=== PATIENT | male | born 1990 | race Caucasian/White ===

== ENCOUNTER 2016-12-28 16:42 | Inpatient (IN) | payer SELFPAY ==
[2016-12-28] MEDS ORDERED: NS 2,000 ML IV ONE (17:16)
[2016-12-28] MEDS ORDERED: VANCOMYCIN 1.5 GM in NS 500 ML IV ONE (17:25)
[2016-12-28 17:27] LABS: % IMMATURE GRANULYOCYTES 1.3 % (0.0-1.1); ABSOLUTE IMMATURE GRANULOCYTES 0.23 10^3/uL (0.00-0.10); ADD DIFF? NO; ADD MORPH? NO; ADD SCAN? YES; ATYPICAL LYMPHOCYTE FLAG 0 (0-99); FRAGMENT RBC FLAG 0 (0-99); HEMATOCRIT 44.6 % (40.0-51.0); HEMOGLOBIN 15.8 g/dL (13.7-17.5); LEFT SHIFT FLG 200 (0-99); LIPEMIA HEMOLYSIS FLAG 90 (0-99); MEAN CELL HEMOGLOBIN 30.7 pg (27.9-34.1); MEAN CELL HEMOGLOBIN CONCENTR. 35.4 g/dL (32.4-36.7); MEAN CELL VOLUME 86.8 fL (81.5-99.8); PLATELET CLUMPS FLAG 0 (0-99); PLATELET COUNT 162 10^3/uL (150-400); RED BLOOD CELL COUNT 5.14 10^6/uL (4.40-6.38); RED CELL DISTRIBUTION WIDTH 13.3 % (11.5-15.2)
[2016-12-28 17:36] LABS: APTT 34.3 SEC (23.0-38.0); INR 1.22 (0.83-1.16); PROTIME(PATIENT) 15.1 SEC (12.0-15.0)
--- NOTE | 2016-12-28 17:39 | EDPHY ---
H & P Stated Complaint: c/o bilat hand infections from cut x 24 hrs Time Seen by Provider: 12/28/16 16:58 HPI/ROS: This patient complains of wound infections in fever. 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 Over the past 24 hours he has developed subjective fevers in addition increasing tenderness to the hands and redness that is extended from the site of the wounds to entail the entire right arm into his chest and also extending up the left arm with streaking. He took 800 mg of ibuprofen at noon with resolution of fever but also had diaphoresis. Constitutional: + Subjective fevers and chills today prior to ibuprofen HEENT: Denies any complaints Pulmonary: Has a mild cough for the past 5 days that he attributes to smoking. This is occasionally productive of sputum. No pleuritic pain wheezing or shortness of breath Cardiovascular: He denies any chest pain or lightheadedness GI: No nausea vomiting. No diarrhea. : Darker urine than usual today. No dysuria. Neuro: No confusion, numbness or tingling. Musculoskeletal: He complains primarily of the pain at the right 2nd finger but has tenderness to all of his hand wounds both sides left thumb as well. However this all feels like skin pain him rather than bony pain. Denies any major trauma to the hands. But admits multiple minor wounds over successive days over the past week. Complete review of symptoms is otherwise negative. Source: Patient Exam Limitations: No limitations - Personal History Current Tetanus Diphtheria and Acellular Pertussis (TDAP): Unsure - Medical/Surgical History PMH: Psychiatric history. No previous skin infections. Other PMH: denies - Family History Significant Family History: No pertinent family hx - Social History Smoking Status: Current some day smoker Alcohol Use: Heavy (He reports 3 beers on average a day.) Drug Use: Marijuana (He reports regular marijuana use), Other (He denies any IV drug use) Additional Social History: Works as a emergency services professional often without his shirt on. - Physical Exam Exam: Notable for tachycardia of 135 on arrival, respiratory 22, O2 sat on room air 94 %. Other vitals normal General Appearance: Alert, no distress. Eyes: Pupils equal and round no pallor or injection. ENT, Mouth: Mucous membranes moist. Respiratory: There are no retractions, lungs are clear to auscultation. Cardiovascular: Regular rate and rhythm. Gastrointestinal: Abdomen is soft and nontender, no masses, bowel sounds normal. Neurological: GCS of 15 with no focal deficits Skin: Warm and dry, no rashes. Musculoskeletal: Neck is supple nontender. Extremities notable for hand wounds with infections-right hand 2nd finger with circumferential swelling and abrasion adjacent to the PIP joint with small amount of purulent drainage. No fluctuance. He does have some pain with passive motion in extension but no flexor tenderness or swelling. There are small dorsal wounds to the 3rd finger on the same hand into the thumb. There is confluent erythema extending from the skin wounds to the hand up the arm with lymphangitic streaking extends to the axilla and chest. Left hand thumb superficial skin wound with surrounding erythema that also extends up his arm with lymphangitic streaking. Psychiatric: Mood and affect are normal DIFFERENTIAL DIAGNOSIS: After history and physical exam differential diagnosis was considered for wound infection with lymphangitic streaking, cellulitis, sepsis, tendon sheath infection, osteomyelitis Constitutional: Initial Vital Signs Temperature (C) 36.6 C 12/28/16 17:05 Heart Rate 135 H 12/28/16 17:05 Respiratory Rate 22 H 12/28/16 17:05 Blood Pressure 121/94 H 12/28/16 17:05 O2 Sat (%) 94 12/28/16 17:05 O2 Delivery Mode Room Air Allergies/Adverse Reactions: No Known Allergies Allergy (Unverified 12/28/16 17:04) Home Medications: Medication Instructions Recorded Sertraline HCl 12/28/16 Wellbutrin 100mg (*) 12/28/16 Medical Decision Making - Diagnostics Imaging Results: 2nd finger x-rays: Normal except for soft tissue swelling at the PIP joint by my interpretation ED Course/Re-evaluation: IV normal saline bolus x2 L I spoke with Dr. Stephen Degroot, infectious disease regarding this patient he agrees with antibiotic plan of ceftriaxone vancomycin will consult on the patient when he is admitted. Ceftriaxone 1 g IV Vancomycin 1.5 g. IV I spoke with Dr. Raisa Otero, hospitalist who accepts patient for admission to step-down unit of the ICU at [facility]. I counseled the patient regarding his skin infection with sepsis requiring admission and answered his questions. I obtained a wound swab sent for culture using an 18 gauge needle but after baby shampoo and saline scrub to right hand wounds. Patient tolerated well. Discussion: Patient with hand wounds with infection causing lymphangitic streaking, cellulitis and severe sepsis by criteria with an elevated 1st lactate. His hand exam is notable for circumferential swelling to the right 2nd finger primarily at the PIP joint with some pain on passive motion in extension and flexion concerning for potential infectious tenosynovitis. Given this finding, I also consulted Dr. Shreyas Olmos-hand surgeon. Dr. olmos's in hand surgery so her lead some of the findings through his surgical nurse. Dr. olmos will consult Hospital regarding this patient. The patient is placed on NPO they had a small amount of water shortly after arrival here nothing since lunch at noon had a sandwich. His tachycardia is improving with saline IV-after 2 L his heart rate is 115. Repeat lactate after 2 L saline was spuriously low, apparently contaminated by some saline. This will be recheck to the hospital. 3rd L NS started. Patient is transferred to [facility] Step-Down Unit at approximately 2115. - Data Points Laboratory Results: Laboratory Results 12/28/16 17:20 12/28/16 17:20 12/28/16 12/28/16 12/28/16 17:20 17:20 17:20 WBC 18.12 10^3/uL H 10^3/uL (3.80-9.50) RBC 5.14 10^6/uL 10^6/uL (4.40-6.38) Hgb 15.8 g/dL g/dL (13.7-17.5) Hct 44.6 % % (40.0-51.0) MCV 86.8 fL fL (81.5-99.8) MCH 30.7 pg pg (27.9-34.1) MCHC 35.4 g/dL g/dL (32.4-36.7) RDW 13.3 % % (11.5-15.2) Plt Count 162 10^3/uL 10^3/uL (150-400) MPV 10.0 fL fL (8.7-11.7) Neut % (Auto) 88.2 % H % (39.3-74.2) Lymph % (Auto) 2.8 % L % (15.0-45.0) Nobles % (Auto) 7.0 % % (4.5-13.0) Eos % (Auto) 0.4 % L % (0.6-7.6) Baso % (Auto) 0.3 % % (0.3-1.7) Nucleat RBC Rel Count 0.0 % % (0.0-0.2) Absolute Neuts (auto) 16.00 10^3/uL H 10^3/uL (1.70-6.50) Absolute Lymphs (auto) 0.50 10^3/uL L 10^3/uL (1.00-3.00) Absolute Monos (auto) 1.27 10^3/uL H 10^3/uL (0.30-0.80) Absolute Eos (auto) 0.07 10^3/uL 10^3/uL (0.03-0.40) Absolute Basos (auto) 0.05 10^3/uL 10^3/uL (0.02-0.10) Absolute Nucleated RBC 0.00 10^3/uL 10^3/uL (0-0.01) Immature Gran % 1.3 % H % (0.0-1.1) Seg Neutrophils % 72 % % Band Neutrophils % 15 % % Lymphocytes % 3 % % Monocytes % 8 % % Metamyelocytes % 1 % % Immature Gran # 0.23 10^3/uL H 10^3/uL (0.00-0.10) Absolute Seg Neuts 13.0 K/MM3 H K/MM3 (1.8-7) Absolute Band Neuts 2.7 K/MM3 H K/MM3 (0-0.7) Absolute Lymphocytes 0.5 K/mm3 L K/mm3 (1.0-4.8) Absolute Monocytes 1.4 K/mm3 H K/mm3 (0-0.8) Absolute Metamyelocyte 0.2 K/mm3 H K/mm3 (0-0) RBC/WBC/PLT Morphology NORMAL (NORMAL) Platelet Estimate ADEQUATE (ADEQ) ESR 14 MM/HR MM/HR (0-15) PT INR APTT VBG Lactic Acid 3.8 mmol/L H mmol/L (0.7-2.1) Sodium 131 mEq/L L mEq/L (134-144) Potassium 4.3 mEq/L mEq/L (3.5-5.2) Chloride 100 mEq/L mEq/L (97-110) Carbon Dioxide 17 mEq/l L mEq/l (22-31) Anion Gap 14 mEq/L mEq/L (8-16) BUN 12 mg/dL mg/dL (7-23) Creatinine 0.9 mg/dL mg/dL (0.7-1.3) Estimated GFR > 60 Glucose 147 mg/dL H mg/dL (70-100) Calcium 9.0 mg/dL mg/dL (8.5-10.4) 12/28/16 17:20 WBC RBC Hgb Hct MCV MCH MCHC RDW Plt Count MPV Neut % (Auto) Lymph % (Auto) Nobles % (Auto) Eos % (Auto) Baso % (Auto) Nucleat RBC Rel Count Absolute Neuts (auto) Absolute Lymphs (auto) Absolute Monos (auto) Absolute Eos (auto) Absolute Basos (auto) Absolute Nucleated RBC Immature Gran % Seg Neutrophils % Band Neutrophils % Lymphocytes % Monocytes % Metamyelocytes % Immature Gran # Absolute Seg Neuts Absolute Band Neuts Absolute Lymphocytes Absolute Monocytes Absolute Metamyelocyte RBC/WBC/PLT Morphology Platelet Estimate ESR PT 15.1 SEC H SEC (12.0-15.0) INR 1.22 H (0.83-1.16) APTT 34.3 SEC SEC (23.0-38.0) VBG Lactic Acid Sodium Potassium Chloride Carbon Dioxide Anion Gap BUN Creatinine Estimated GFR Glucose Calcium Medications Given: Acetaminophen (Tylenol) 650 mg PO Q4HRS PRN PRN Reason: Pain, Mild/Fever, Can Take PO Stop: 06/26/17 20:22 Last Admin: 12/28/16 20:47 Dose: 650 mg Discontinued Medications Sodium Chloride (Ns) 2,000 mls @ 0 mls/hr IV ONCE ONE; Wide Open PRN Reason: Protocol Stop: 12/28/16 17:17 Last Admin: 12/28/16 17:49 Dose: 2,000 mls Ceftriaxone Sodium 1 gm/ (Sodium Chloride) 100 mls @ 200 mls/hr IV EDNOW ONE PRN Reason: Protocol Stop: 12/28/16 17:53 Last Admin: 12/28/16 17:43 Dose: 100 mls Vancomycin HCl 1.5 gm/ Sodium (Chloride) 500 mls @ 333.333 mls/hr IV EDNOW ONE PRN Reason: Protocol Stop: 12/28/16 18:54 Last Admin: 12/28/16 17:40 Dose: 500 mls Sodium Chloride (Ns) 1,000 mls @ 0 mls/hr IV ONCE ONE; Wide Open PRN Reason: Protocol Stop: 12/28/16 19:02 Last Admin: 12/28/16 19:13 Dose: 1,000 mls Departure - Departure Disposition: [facility] Inpatient Acute Clinical Impression: Lymphangitis, Severe sepsis Puncture wound of right hand with infection Qualifiers: Encounter type: initial encounter Qualified Code(s): S61.431A - Puncture wound without foreign body of right hand, initial encounter Condition: Serious
[2016-12-28 17:41] LABS: SCAN POSITIVE
[2016-12-28 17:44] LABS: ANION GAP 14 mEq/L (8-16); CARBON DIOXIDE 17 mEq/l (22-31); CHLORIDE 100 mEq/L (97-110); CREATININE 0.9 mg/dL (0.7-1.3); GLOMERULAR FILTRATION RATE > 60; GLUCOSE 147 mg/dL (70-100); PLATELET ESTIMATE ADEQUATE (ADEQ); POTASSIUM 4.3 mEq/L (3.5-5.2); SODIUM 131 mEq/L (134-144)
[2016-12-28 18:04] LABS: SEDIMENTATION RATE 14 MM/HR (0-15)
[2016-12-28] MEDS ORDERED: NS 1,000 ML IV ONE (19:01)
[2016-12-28 19:08] LABS: LEUKOCYTE ESTERASE,URINE NEGATIVE (NEGATIVE); NITRITE,URINE NEGATIVE (NEGATIVE)
[2016-12-28 19:12] LABS: COLOR DARK YELLOW
[2016-12-28 19:16] LABS: BACTERIA TRACE /hpf (NONE SEEN); MUCUS 2+ /lpf (NONE-1+); WBC,URINE OCCASIONAL /hpf (0-3)
[2016-12-28] MEDS ORDERED: ONDANSETRON DISINTEGRATING 4 MG TAB PO PRN ×2 (20:23→21:00)
[2016-12-28] MEDS ORDERED: ONDANSETRON 4 MG/2 ML VIAL IVP PRN (20:23)
[2016-12-28] MEDS: ACETAMINOPHEN 325 MG TAB PO PRN (20:47)
[2016-12-28] MEDS ORDERED: NS 1,000 ML IV SCH (21:00)
[2016-12-28] MEDS ORDERED: ACETAMINOPHEN 325 MG TAB PO PRN (21:00)
[2016-12-28] MEDS ORDERED: LIDOCAINE 2% 100 MG/5 ML SYR ONE (21:01)
[2016-12-28] MEDS ORDERED: fentaNYL 250 MCG/5 ML INJ ONE (21:01)
[2016-12-28] MEDS ORDERED: PROPOFOL 200 MG/20 ML VIAL ONE (21:01)
[2016-12-28] MEDS ORDERED: MIDAZOLAM 2 MG/2 ML VIAL ONE (21:04)
--- NOTE | 2016-12-28 21:09 | PDANEPAE ---
ANE Past Medical History - Pulmonary History Hx Oxygen in Use at Home: No ANE Review of Systems Review of Systems: ANE Patient History - Allergies Allergies/Adverse Reactions: No Known Allergies Allergy (Unverified 12/28/16 17:04) - Home Medications Home Medications: Seroquel 100 mg (*) 12/28/16 [Last Taken Unknown] Wellbutrin 100mg (*) 12/28/16 [Last Taken Unknown] - Smoking Hx Smoking Status: Current some day smoker - Alcohol Use Alcohol Use: Heavy (He reports 3 beers on average a day.) ANE Labs/Vital Signs - Labs Result Diagrams: 12/28/16 17:20 12/28/16 17:20 - Vital Signs Blood Pressure: 108/64 Heart Rate: 116 Respiratory Rate: 25 O2 Sat (%): 100 Height: 177.8 cm Weight: 76.6 kg ANE Physical Exam - Airway Neck exam: FROM Mallampati Score: Class 2 Mouth exam: normal dental/mouth exam - Pulmonary Pulmonary: no respiratory distress - Cardiovascular Cardiovascular: regular rate and rhythym - ASA Status ASA Status: II, E ANE Anesthesia Plan Anesthesia Plan: GA w LMA
--- NOTE | 2016-12-28 21:19 | GHP ---
[f rep st] HISTORY AND PHYSICAL DATE OF ADMISSION: 12/28/2016 CHIEF COMPLAINT: Severe sepsis, right hand cellulitis, possible abscess. HISTORY OF PRESENT ILLNESS: A 26-year-old male with history of depression, presenting with right hand swelling, pain and fever. He works in [employer] and has multiple cuts over his hands. He said he has picked at some of the scabs on the right. There was a little bit of pus that came out. He was trying to disinfect it. He had fevers and sweats last night. He noted swelling yesterday that rapidly progressed today, especially his right index finger. He began having red streaking up the right arm to his axilla. Reports the pain as being achy and throbbing, especially if he hits it on something. He took 800 mg of ibuprofen at noon with a fever and helped resolve that. REVIEW OF SYSTEMS: I completed a 10-point review of systems, negative except as noted in HPI. PAST MEDICAL HISTORY: Depression. PAST SURGICAL HISTORY: None. FAMILY HISTORY: Noncontributory. SOCIAL HISTORY: He is living at [place] [id number] or in [place]. He smokes a pack of cigarettes a day. Smokes daily marijuana. No other drugs. Three to 5 beers a day. MEDICATIONS: Zoloft, Wellbutrin. ALLERGIES: No known drug allergies. PHYSICAL EXAM: VITAL SIGNS: Temperature 39.1, blood pressure 108/64, heart rate 116, respirations 20, 100% on room air. GENERAL: Sitting up in bed, mildly uncomfortable. HEENT: PERRLA. Dry mucous membranes. CV: Tachy but regular. No murmurs, gallops, rubs. LUNGS: Clear to auscultation bilaterally. ABDOMEN: Soft, nontender, nondistended. Positive bowel sounds. : No suprapubic tenderness. MUSCULOSKELETAL: Right hand erythematous with significant swelling, +2 pulse. Significant swelling in the index finger. There is a couple scabbed over lesions. No overt purulence now. He has red streaking up to the axilla. Left hand with mild swelling over the thumb and erythema there. Tenderness to touch. Good cap refill. NEURO: 2 through 12 intact. PSYCH: Alert and oriented x3. LABS: WBC is 18, hemoglobin 15, hematocrit 44, platelets 162. INR 1.2, PT 15. Lactate 3.8, 0.5 after fluids. Sodium 131, potassium 4.3, chloride 100, carbon dioxide 29, creatinine 0.9, glucose 147, calcium 9. UA trace bacteria. Blood cultures are pending. IMAGING: Hand x-ray 12/28/2016. Diffuse hand edema and asymptomatic involving the right index finger. ASSESSMENT AND PLAN: 1. Severe sepsis: Secondary to right hand cellulitis versus abscess, also left hand involvement. Infectious Disease was contacted from [facility] and he recommended ceftriaxone, vancomycin. Dr. Olmos with hand surgery will take patient for I and D this evening. Blood cultures are pending. Repeat CBC in the morning. 2. Lactic acidosis: due to acute illness.Resolved quickly with IV fluids. 3. Tachycardia: due to fever, infection and pain. Monitor on telemetry. Continue IV fluids. 4. Leukocytosis. Again, secondary to abscess. Urine cultures pending. Continue broad antibiotics. Infectious Disease to consult in the morning. 5. Tobacco abuse. Nicotine patch. 6. THC use. Counseled on cessation. 7. Alcohol use. He drinks 3-5 beers a day. Denies any alcohol withdrawal. Will monitor. DIET: N.p.o. DEEP VENOUS THROMBOSIS PROPHYLAXIS: SCDs. DISPOSITION: Patient warrants inpatient admission given acute sepsis warranting surgical intervention and IV antibiotics. /[id number]/MODL MTDD
[2016-12-28] MEDS ORDERED: BACITRACIN 50,000 UNITS/10 ML SYR IRR ONE ×2 (21:42→22:44)
[2016-12-28] MEDS ORDERED: POLYMYXIN B SULFATE 500,000 UNIT/10 ML SYR IRR ONE ×2 (21:42→22:44)
[2016-12-28] MEDS: NICOTINE 21 MG/24 HR PATCH TD SCH (21:45)
[2016-12-28] MEDS ORDERED: ceFAZolin 1 GM VIAL ONE ×2 (22:46)
[2016-12-29] MEDS ORDERED: NALOXONE HCL 0.4 MG/ML INJ IVP PRN (00:52)
[2016-12-29] MEDS ORDERED: fentaNYL 100 MCG/2 ML INJ IVP PRN (00:52)
[2016-12-29] MEDS ORDERED: ALBUTEROL 3 ML DEYVIAL IH PRN (00:52)
[2016-12-29] MEDS ORDERED: ONDANSETRON 4 MG/2 ML VIAL IVP PRN (00:52)
[2016-12-29] MEDS ORDERED: HYDROmorphONE/DILAUDID 1 MG/ML INJ IVP PRN (00:52)
[2016-12-29] MEDS ORDERED: ACETAMINOPHEN 500 MG TAB PO PRN (00:52)
--- NOTE | 2016-12-29 00:54 | POSTANESTH ---
Post Anesthetic Evaluation Cardiovascular Status: Similar to Pre-Op Cond Respiratory Status: Similar to Pre-op Cond. Level of Consciousness/Mental Status: Alert and Oriented Pain Control: Adequate, Prn Tx Ordered Nausea/Vomiting Control: Adequate, Prn Tx Ordered Complications Possibly Related to Anesthesia: None Noted
[2016-12-29] MEDS: ACETAMINOPHEN 325 MG TAB PO PRN (01:12)
[2016-12-29] MEDS: HYDROmorphONE/DILAUDID 1 MG/ML INJ IVP PRN ×4 (01:33→16:08)
[2016-12-29] MEDS: oxyCODONE IR 5 MG TAB PO PRN ×5 (02:05→17:42)
[2016-12-29] MEDS: VANCOMYCIN 1.25 GM in D5W 250 ML IV SCH ×2 (05:24→17:09)
--- NOTE | 2016-12-29 05:30 | GCON ---
[f rep st] CONSULTATION Patient Name: KAREEN GARNETT N-Number: [id number] Date of : 1990 Patient Status: Inpatient Attending Doctor: Amanda Otero MD Consulting Doctor: Shreyas Olmos MD Date of service: 12/28/16 CPT codes: CPT code 17764 ER visit requiring admission or initial inpatient visit, level three Modifier 57 decision for surgery CHIEF COMPLAINT: Right index, long, ring, and small finger pain, right volar and radial wrist pain. Left thumb and ring finger pain HISTORY OF PRESENT ILLNESS: This is a very pleasant 26 year old male with a significant history for IVDU with the insidious onset of right index, long, ring, and small finger pain, right volar and radial wrist pain, left thumb pain, and left ring finger pain after sustaining multiple cuts in these areas. He has also noticed overlying swelling and erythema in all of the aforementioned areas. PROBLEM LIST: Right dorsal hand and index finger infection, right long finger dorsal PIPJ infection, right ring finger dorsal metacarpal infection, right small finger paronychia, right volar and radial wrist abscess // Left dorsal thumb metacarpal infection, left radial thumb IPJ infection, left thumb felon, left ring finger felon PAST MEDICAL HISTORY: None SURGERIES: None SOCIAL HISTORY: IVDU, tobacco, marijuana FAMILY HISTORY: CURRENT MEDICATIONS: None ALLERGIES: NKDA REVIEW OF SYSTEMS Constitutional: No unexpected weight loss, weight gain, fevers, chills, or fatigue. Eyes: No blurred or double vision, no eye pain, redness or swelling. ENT: No headaches, difficulty swallowing, nose bleeds, tinnitus, or earaches. Cardiovascular: No chest pain, palpitations, fainting or murmurs. Respiratory: No shortness of breath, wheezing, cough, of difficulty breathing. GI: No reflux, no nausea or vomiting, no constipation, diarrhea, or bloody stools. Genitourinary: No urinary frequency or urgency, no pain with urination. Skin: No skin changes, rashes, itching, or redness. Neurologic: No unsteadiness of gait, no dizziness, tremors, or seizures. Psychiatric: No nervousness, anxiety, depression, or hallucinations. Hematologic: No increased bleeding or easy bruising. Endocrine: No excessive thirst or urination and no heat or cold intolerances. Allergic: No reactions to food or environment. Musculoskeletal: See history of present illness. PHYSICAL EXAM VITAL SIGNS: General: No apparent distress. Orientation: Alert and oriented times three Mood and affect: Calm, appropriate. Gait and station: Normal gait and station. Skin: Erythema along right hand and forearm as well as left thumb and left ring finger Lymph: Non tender neck, axillary and inguinal nodes. Chest: Equal expansion, no pain with deep breaths, speaks in coherent sentences. Cardiovascular: Regular pulse. Abdomen: Soft, non-tender, no masses, no palpable hernias. Bilateral wrist examination Inspection/palpation: Right: Right volar and radial wrist laceration (3mm) with surrounding erythema and enlargement c/w abscess Left: Normal resting posture. Wrist ROM Wrist Flexion: 90 / 90 / 90 Extension: 90 / 90 / 90 Forearm Supination: 0-80 / 0-80 / 0-80 Pronation: 0-80 / 0-80 / 0-80 Wrist/hand strength (R / L / Normal) ECRL/ECRB (C6): FCU/ECU: EDC: EPL (PIN): FPL (AIN): FDS (C8): FDP (C8): FDP-I (C8 / AIN): DI (C8-T1): PI (C8-T1): / Wrist/hand sensory MABC : + / + / + LABC: + / + / + Median: + / + / + Palmar cutaneous: + / + / + Radial: + / + / + SBRN: + / + / + Ulnar: + / + / + DSBUN: + / + / + Bilateral finger examination Inspection/palpation: Right: Right dorsal index metacarpal, right index MCPJ, and right index PIPJ pain and erythema, right dorsal long finger PIPJ pain and erythema, right ring finger dorsal metacarpal pain and swelling, right small finger paronychia Left: Left ring finger volar distal phalanx laceration (3mm) with associated felon Finger ROM Index MCP: 0-50 / 0-80 / 0-80 PIP: 0-75 / 0-105 / 0-105 DIP: 0-45 / 0-75 / 0-75 Long MCP: 0-80 / 0-80 / 0-80 PIP: 0-85 / 0-105 / 0-105 DIP: 0-75 / 0-75 / 0-75 Ring MCP: 0-60 / 0-80 / 0-80 PIP: 0-85 / 0-105 / 0-105 DIP: 0-55 / 0-60 / 0-75 Small MCP: 0-80 / 0-80 / 0-80 PIP: 0-105 / 0-105 / 0-105 DIP: 0-45 / 0-75 / 0-75 Finger motor and sensory Index FDS: + / + / + FDP: + / + / + EDC: + / + / + RDN: + / + / + UDN: + / + / + Long FDS: + / + / + FDP: + / + / + EDC: + / + / + RDN: + / + / + UDN: + / + / + Ring FDS: + / + / + FDP: + / + / + EDC: + / + / + RDN: + / + / + UDN: + / + / + Small FDS: + / + / + FDP: + / + / + EDC: + / + / + RDN: + / + / + UDN: + / + / + Bilateral thumb examination Inspection/palpation: Right: Soft, no tenderness to palpation. Left: Left dorsal thumb metacarpal laceration (3mm) with surrounding erythema, left radial-sided IPJ laceration (2mm) with surrounding erythema, left ulnar sided thumb distal phalanx laceration (2mm) with associated felon Thumb ROM CMC Radial abduction: 80 / 80 / 80 Palmar abduction: 80 / 80 / 80 MCP: 0-60 / 0-40 / 0-60 IP: 0-50 / 0-30 / 0-50 Thumb motors FPL: EPL: Thumb sensory RDN: + / + / + UDN: + / + / + Medical decision making Diagnoses New diagnoses: Right dorsal hand and index finger infection, right long finger dorsal PIPJ infection, right ring finger dorsal metacarpal infection, right small finger paronychia, right volar and radial wrist abscess // Left dorsal thumb metacarpal infection, left radial thumb IPJ infection, left thumb felon, left ring finger felon Work-up planned: yes: see assessment and plan Assessment and plan This is a 26 year old male with a right dorsal hand and index finger infection, a right long finger dorsal PIPJ infection, a right ring finger dorsal metacarpal infection, a right small finger paronychia, a right volar and radial wrist abscess, left dorsal thumb metacarpal infection, a left radial thumb IPJ infection, a left thumb felon, and a left ring finger felon -As such I have discussed with the patient the risks, benefits, alternatives, and complications associated with both non-operative (specifically, observation , antibiotics) and operative (specifically, bilateral hand and wrist irrigation and debridement) forms of treatment -The patient fully understands the risks, benefits, alternatives, and complications of both forms of treatment and the patient wishes to proceed with operative intervention as outlined above -He has signed the informed consent form for surgery and surgery will be performed as soon as the OR is available Time I have spent 80 minutes of [id number] time with the patient during this visit. Over fifty percent of this time was spent counseling the patient on the risks, benefits, alternatives, and complications of both non-operative and operative forms of treatment as outlined above. /[id number]/MODL MTDD
[2016-12-29 05:32] LABS: HEMATOCRIT 38.2 % (40.0-51.0); HEMOGLOBIN 13.5 g/dL (13.7-17.5); MEAN CELL HEMOGLOBIN 31.9 pg (27.9-34.1); MEAN CELL HEMOGLOBIN CONCENTR. 35.3 g/dL (32.4-36.7); MEAN CELL VOLUME 90.3 fL (81.5-99.8); RED BLOOD CELL COUNT 4.23 10^6/uL (4.40-6.38); RED CELL DISTRIBUTION WIDTH 13.8 % (11.5-15.2)
[2016-12-29 05:45] LABS: ANION GAP 8 mEq/L (8-16); CALCIUM 8.1 mg/dL (8.5-10.4); CARBON DIOXIDE 19 mEq/l (22-31); CHLORIDE 107 mEq/L (97-110); CREATININE 0.8 mg/dL (0.7-1.3); GLOMERULAR FILTRATION RATE > 60; GLUCOSE 103 mg/dL (70-100); SODIUM 134 mEq/L (134-144)
[2016-12-29] MEDS: diphenhydrAMINE 25 MG CAP PO PRN ×2 (06:29→17:42)
[2016-12-29 07:30] LABS: ALBUMIN 2.6 g/dL (3.5-5.0); BILIRUBIN,TOTAL 0.7 mg/dL (0.1-1.4); BILIRUBIN-CONJUGATED 0.6 mg/dL (0.0-0.5); BILIRUBIN-UNCONJUGATED 0.1 mg/dL (0.0-1.1); MAGNESIUM 1.9 mg/dL (1.6-2.3); TOTAL PROTEIN 4.7 g/dL (6.3-8.2)
--- NOTE | 2016-12-29 08:25 | PDMN ---
Medical Necessity Medical necessity: Patient meets INPT criteria per [facility] M-160 Sepsis and Other Febrile Illness - (severe sepsis d/t bilat hand cellulitis vs abscess: leukocytosis/WBC > 18,000; lactic acidosis/lactic acid 3.8; fever to 102, tachycardia p initial fluid resuscitation; anticipated LOS > 2 midnights for surgical I&D, ongoing IV antibiotics, fluids, antiemetics, pain control.)
[2016-12-29] MEDS: NICOTINE 21 MG/24 HR PATCH TD SCH (08:30)
[2016-12-29] MEDS ORDERED: ENOXAPARIN 40 MG/0.4 ML SYR SC SCH (09:00)
[2016-12-29 09:01] LABS: PHENCYCLIDINE URINE BCH < 6 ng/ml (NEGATIVE); PHENCYCLIDINE URINE BCH NEGATIVE (NEGATIVE)
--- NOTE | 2016-12-29 09:01 | GOP ---
[f rep st] OPERATIVE REPORT PATIENT: KAREEN GARNETT DATE OF SERVICE: 12/28/16 PATIENT DATE OF : 1990 SURGEON: Shreyas Olmos M.D. [employer] REPA[employer]ER: None ANESTHESIA: General PRE-OPERATIVE DIAGNOSES: RIGHT HAND: Right index finger extensor tendon sheath infection (ICD-10 code M65.041 right index extensor tendon sheath infection) Right dorsal index metacarpal abscess (ICD-10 code L02.519 cutaneous abscess of hand) Right dorsal index metacarpophalangeal joint abscess (ICD-10 code L02.519 cutaneous abscess of hand) Right dorsal index proximal interphalangeal joint abscess (ICD-10 code L02.519 cutaneous abscess of hand) Right second web space collar button abscess (ICD-10 code L02.519 cutaneous abscess of hand) Right dorsal long finger proximal interphalangeal joint abscess (ICD-10 code L02.519 cutaneous abscess of hand) Right dorsal ring finger metacarpal abscess (ICD-10 code L02.519 cutaneous abscess of hand) Right dorsal ring finger extensor tendon sheath infection (ICD-10 code M65.041 right ring extensor tendon sheath infection) Right small finger paronychia (ICD-10 code L03.90 paronychia) Right volar and radial wrist abscess (ICD-10 code L02.519 cutaneous abscess of hand) LEFT HAND: Left dorsal thumb metacarpal abscess (ICD-10 code L02.519 cutaneous abscess of hand) Left thumb extensor tendon sheath infection (ICD-10 code M65.041 left thumb extensor tendon sheath infection) Left thumb radial-sided interphalangeal joint abscess (ICD-10 code L02.519 cutaneous abscess of hand) Left thumb felon (ICD-10 code L02.519 cutaneous abscess of hand) Left ring finger felon (ICD-10 code L02.519 -- cutaneous abscess of hand) POST-OPERATIVE DIAGNOSES: RIGHT HAND: Right index finger extensor tendon sheath infection (ICD-10 code M65.041 right index extensor tendon sheath infection) Right dorsal index metacarpal abscess (ICD-10 code L02.519 cutaneous abscess of hand) Right dorsal index metacarpophalangeal joint abscess (ICD-10 code L02.519 cutaneous abscess of hand) Right dorsal index proximal interphalangeal joint abscess (ICD-10 code L02.519 cutaneous abscess of hand) Right second web space collar button abscess (ICD-10 code L02.519 cutaneous abscess of hand) Right dorsal long finger proximal interphalangeal joint abscess (ICD-10 code L02.519 cutaneous abscess of hand) Right dorsal ring finger metacarpal abscess (ICD-10 code L02.519 cutaneous abscess of hand) Right dorsal ring finger extensor tendon sheath infection (ICD-10 code M65.041 right ring extensor tendon sheath infection) Right small finger paronychia (ICD-10 code L03.90 paronychia) Right volar and radial wrist abscess (ICD-10 code L02.519 cutaneous abscess of hand) LEFT HAND: Left dorsal thumb metacarpal abscess (ICD-10 code L02.519 cutaneous abscess of hand) Left thumb extensor tendon sheath infection (ICD-10 code M65.041 left thumb extensor tendon sheath infection) Left thumb radial-sided interphalangeal joint abscess (ICD-10 code L02.519 cutaneous abscess of hand) Left thumb felon (ICD-10 code L02.519 cutaneous abscess of hand) Left ring finger felon (ICD-10 code L02.519 -- cutaneous abscess of hand) OPERATIVE PROCEDURES: RIGHT HAND: CPT code 88539 Right index finger drainage of tendon sheath (right index extensor) CPT code 79464 Right dorsal index metacarpal abscess incision and drainage CPT code 37291 Right dorsal index MCP joint abscess incision and drainage CPT code 48223 Right dorsal index PIP joint abscess incision and drainage CPT code 84090 Right second web space collar button abscess incision and drainage CPT code 27458 Right long finger dorsal PIPJ abscess incision and drainage CPT code 17644 Right ring finger dorsal metacarpal abscess incision and drainage CPT code 49256 Right ring finger drainage of tendon sheath (right ring extensor ) CPT code 10567 Right small finger paronychia incision and drainage CPT code 39915 Right volar and radial wrist abscess incision and drainage CPT code 21217 Debridement of bone, first 20 square cm or less LEFT HAND: CPT code 35827 Left thumb dorsal metacarpal abscess incision and drainage CPT code 93242 Left thumb drainage of tendon sheath (left thumb extensors) CPT code 56933 Left thumb radial-sided IP joint abscess incision and drainage CPT code 86584 Left thumb felon incision and drainage CPT code 21657 Left ring finger felon incision and drainage CPT code 51721 Debridement of bone, first 20 square cm or less EBL: RIGHT HAND: 3cc LEFT HAND: 1cc COMPLICATIONS: None TOURNIQUET TIME: RIGHT HAND: 81 minutes at 250mm Hg LEFT HAND: 43 minutes at 250 mm Hg IMPLANTS: RIGHT HAND: inch nu-gauze packing strips in right index dorsal metacarpal abscess, right index dorsal MCP joint abscess, right index dorsal PIP joint abscess, and right second web space collar button abscess LEFT HAND: inch nu-gauze packing strips in left dorsal thumb metacarpal abscess, left thumb radial-sided IP joint abscess, and left thumb felon BRIEF CLINICAL NOTE: This is a very pleasant 26 year old male with a significant history for multiple abscess affecting his bilateral hand. As such , I discussed the risks, benefits, alternatives, and complications associated with both non-operative (specifically, observation, antibiotics) and operative ( specifically, bilateral hand irrigation and debridement) forms of treatment. The patient fully understood the risks, benefits, alternatives, and complications associated with both forms of treatment and wished to proceed with operative intervention as outlined above. The patient signed the informed consent form for surgery. OPERATIVE NOTE: On the day of surgery, all of the patients questions were answered. The patient was then transferred from the pre-operative area into the operating room and a formal, Time-Out procedure was performed. The patient was identified by name, medical record number, social security number, and date of . In addition, the patients right and left hands were both identified as correct portions of the patients body for surgery. The right and left brachii were then padded with webril and 18-inch tourniquets were applied. The bilateral upper extremities were then prepped and draped in the normal sterile fashion. RIGHT HAND A sterile marking pen was then utilized to marquita out curvilinear incisions overlying the right dorsal index metacarpal, the right dorsal index MCP joint, the right dorsal index PIP joint, the right volar second web space, the right dorsal long finger PIP joint, the right dorsal ring finger metacarpal, the radial and ulnar borders of the right small finger eponychium, and the right volar and radial wrist. The right upper extremity was then elevated for several minutes and the tourniquet was inflated to 250mm Hg. Right dorsal index metacarpal incision A number 15 blade was used to incise the skin overlying the right dorsal index finger metacarpal. Meticulous hemostasis was obtained in the subcutaneous plane. Superficial sensory nerve branches were identified and protected. The EDC-index and the EIP tendons were both identified and protected. The abscess cavity was incised and drained. The extensor tendon sheath was also incised and drained. Swab and tissue cultures were obtained. The entire wound was sharply surgically debrided and copiously irrigated with sterile normal saline mixed with bacitracin and polymixin. Right dorsal index MCP joint incision A number 15 blade was used to incise the skin overlying the right dorsal index finger MCP joint. Meticulous hemostasis was obtained in the subcutaneous plane. Superficial sensory nerve branches were identified and protected. The EDC-index and the EIP tendons were both identified and protected. The abscess cavity was incised and drained. The extensor tendon sheath was also incised and drained. Swab and tissue cultures were obtained. The entire wound was sharply surgically debrided and copiously irrigated with sterile normal saline mixed with bacitracin and polymixin. Right dorsal index PIP joint incision A number 15 blade was used to incise the skin overlying the right dorsal index finger PIP joint. Meticulous hemostasis was obtained in the subcutaneous plane. Superficial sensory nerve branches were identified and protected. The EDC-index was identified and protected. The abscess cavity was incised and drained. The extensor tendon sheath was also incised and drained. Swab and tissue cultures were obtained. The entire wound was sharply surgically debrided and copiously irrigated with sterile normal saline mixed with bacitracin and polymixin. Right volar second web space incision A number 15 blade was used to incise the skin overlying the right volar second web space. Meticulous hemostasis was obtained in the subcutaneous plane. The ulnar neurovascular bundle to the index finger and the radial neurovascular bundle to the long finger were both identified and protected. The collar button abscess cavity was incised and drained. Swab and tissue cultures were obtained. The entire wound was sharply surgically debrided and copiously irrigated with sterile normal saline mixed with bacitracin and polymixin Right dorsal long finger PIP joint incision A number 15 blade was used to incise the skin overlying the right dorsal long finger PIP joint. Meticulous hemostasis was obtained in the subcutaneous plane. Superficial sensory nerve branches were identified and protected. The EDC-long was identified and protected. The abscess cavity was incised and drained. The extensor tendon sheath was also incised and drained. Swab and tissue cultures were obtained. The entire wound was sharply surgically debrided and copiously irrigated with sterile normal saline mixed with bacitracin and polymixin. Right dorsal ring metacarpal incision A number 15 blade was used to incise the skin overlying the right dorsal ring finger metacarpal. Meticulous hemostasis was obtained in the subcutaneous plane. Superficial sensory nerve branches were identified and protected. The EDC-ring tendon was identified and protected. The abscess cavity was incised and drained. The extensor tendon sheath was also incised and drained. Swab and tissue cultures were obtained. The entire wound was sharply surgically debrided and copiously irrigated with sterile normal saline mixed with bacitracin and polymixin. Right small finger eponychium incisions A number 15 blade was then utilized to incise the skin along the radial and ulnar borders of the eponychiam and a proximally based flap of skin was elevated and tied back in place utilizing 4-0 nylon sutures. The eponychial fold demonstrated significant purulent drainage which was cultured and sent to the laboratory for microbiologic examination. The entire wound was then sharply surgically debrided and copiously irrigated with sterile normal saline mixed with bacitracin and polymixin. Right volar and radial wrist incision A number 15 blade was used to incise the skin overlying the right volar and radial wrist. Meticulous hemostasis was obtained in the subcutaneous plane. Superficial sensory nerve branches were identified and protected. The abscess cavity was incised and drained. Swab and tissue cultures were obtained. The entire wound was sharply surgically debrided and copiously irrigated with sterile normal saline mixed with bacitracin and polymixin. One-quarter inch nu-gauze packing strips were then inserted into the following wounds: -Right dorsal index metacarpal -Right dorsal index MCP joint -Right dorsal index PIP joint -Right volar second web space The skin was then re-approximated for all incisions with 4-0 nylon sutures. The skin was then cleaned and dried. Betadine soaked gauze as applied to all of the incisions followed by a dry sterile dressing and a compressive Coban wrap. The tourniquet was then deflated and all fingers and the thumb demonstrated brisk capillary refill. Attention was then turned to the left upper extremity: LEFT HAND A sterile marking pen was then utilized to marquita out curvilinear incisions overlying the left dorsal thumb metacarpal, the left thumb radial IP joint, the ulnar border of the left thumb distal phalanx, and the volar aspect of the left ring finger distal phalanx. The left upper extremity was then elevated for several minutes and the tourniquet was inflated to 250mm Hg. Left thumb dorsal metacarpal incision A number 15 blade was used to incise the skin overlying the left thumb dorsal metacarpal. Meticulous hemostasis was obtained in the subcutaneous plane. Superficial sensory nerve branches were identified and protected. The EPL and EPB tendons were both identified and protected. The abscess cavity was incised and drained. The extensor tendon sheath was also incised and drained. Swab and tissue cultures were obtained. The entire wound was sharply surgically debrided and copiously irrigated with sterile normal saline mixed with bacitracin and polymixin. Left thumb radial-sided IP joint incision A number 15 blade was used to incise the skin overlying the radial aspect of the left thumb IP joint. Meticulous hemostasis was obtained in the subcutaneous plane. The radial neurovascular bundle was identified and protected. The abscess cavity was incised and drained. The entire wound was sharply surgically debrided and copiously irrigated with sterile normal saline mixed with bacitracin and polymixin. Left thumb ulnar-sided distal phalanx incision A number 15 blade was used to incise the skin overlying the ulnar aspect of the left thumb distal phalanx. Meticulous hemostasis was obtained in the subcutaneous plane. The pulp space septae were sharply incised. The abscess cavity was incised and drained. The entire wound was sharply surgically debrided and copiously irrigated with sterile normal saline mixed with bacitracin and polymixin. Left ring finger volar distal phalanx incision A number 15 blade was used to incise the skin overlying the volar aspect of the left ring finger distal phalanx. Meticulous hemostasis was obtained in the subcutaneous plane. The pulp space septae were sharply incised. The abscess cavity was incised and drained. The entire wound was sharply surgically debrided and copiously irrigated with sterile normal saline mixed with bacitracin and polymixin. One-quarter inch nu-gauze packing strips were then inserted into the following wounds: -Left dorsal thumb metacarpal -Left thumb radial-sided IP joint -Left thumb felon The skin was then re-approximated for all incisions with 4-0 nylon sutures. The skin was then cleaned and dried. Betadine soaked gauze as applied to all of the incisions followed by a dry sterile dressing and a compressive Coban wrap. The tourniquet was then deflated and all fingers and the thumb demonstrated brisk capillary refill. The patient was then reversed from anesthesia and transferred from the operating room table onto the post-operative gurney and transferred from the operating room to the post-anesthesia care unit in stable condition. POST-OPERATIVE PLAN: The patient will remain in the current dressings for the next two days. The patient will be admitted to the hospitalist team and the infectious disease team will be consulted for recommendations on long-term antibiotics. /[id number]/MODL MTDD
[2016-12-29 09:12] LABS: TETRAHYDROCANNABINOL URINE 320 ng/mL (NEGATIVE)
--- NOTE | 2016-12-29 11:03 | HOSPPROG ---
Hospitalist Progress Note Assessment/Plan: Sepsis secondary to b/l hand cellulitis / abscess, s/p I&D by orthopedic surgery last night, POD #1. wbc's trending down. Continue Vancomycin, await culture data. Pt has not had tetanus vaccine in at least 10 yrs, will give Tdap. Polysubstance abuse - UDS positive for amphetamine, undetectably high opiates, bzds, and THC. Denies IVDA. HIV screen pending. May need opiates for pain control, though utilize non-opiate therapies as able and minimize home Rx's for his safety. Depression / Anxiety - resume wellbutrin and zoloft Full code Dispo - cont inpt Subjective: Pt reports poor pain control, Tmax 39.1 last night. reports increased redness tracking up right arm into armpit. +N/V, but tolerating po. 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 He uses Nichol and "ambiguous" drugs. Denies IVDA. Objective: Vital Signs Temp Pulse Resp BP Pulse Ox 37.3 C 91 17 144/102 H 92 12/29/16 08:00 12/29/16 08:00 12/29/16 08:00 12/29/16 08:00 12/29/16 08:00 Microbiology 12/28/16 22:15 Gram Stain - Final Hand - Tissue 12/28/16 22:15 Gram Stain - Final Hand - Eswab 12/28/16 22:15 Gram Stain - Final Hand - Eswab 12/28/16 22:15 Mycobacterial Smear (TIFFANIE) - Final Hand - Eswab Mycobacterial Culture - Final 12/28/16 22:15 Mycobacterial Smear (TIFFANIE) - Final Hand - Eswab Mycobacterial Culture - Final Laboratory Results 12/29/16 05:18 12/29/16 05:18 12/28/16 12/29/16 12/30/16 05:59 05:59 05:59 Intake Total 3750 1750 Output Total 300 800 Balance 3450 950 PT 15.1 SEC (12.0-15.0) H 12/28/16 17:20 INR 1.22 (0.83-1.16) H 12/28/16 17:20 - Physical Exam Constitutional: no apparent distress Eyes: PERRL Ears, Nose, Mouth, Throat: moist mucous membranes Cardiovascular: regular rate and rhythym, no murmur, rub, or gallop Respiratory: no respiratory distress, clear to auscultation Gastrointestinal: normoactive bowel sounds, soft, non-tender abdomen Skin: warm, other (b/l hand bandages c/d/i, +lymphangitic streaking up right arm into axilla, erythema over right bicep) Neurologic: AAOx3 Psychiatric: interacting appropriately ICD10 Worksheet Patient Problems: Problems Problem Status Onset Lymphangitis Acute Puncture wound of right hand with infection Acute Severe sepsis Acute
[2016-12-29] MEDS ORDERED: ACETAMINOPHEN 325 MG TAB PO SCH (11:15)
[2016-12-29] MEDS: KETOROLAC 30 MG/1 ML SDV IVP SCH ×2 (11:51→17:41)
[2016-12-29] MEDS: SERTRALINE HCL 100 MG TAB PO SCH (11:51)
[2016-12-29] MEDS: ACETAMINOPHEN 500 MG TAB PO SCH ×2 (11:51→20:00)
[2016-12-29] MEDS: buPROPion SR 150 MG TAB PO SCH ×2 (12:26→21:56)
[2016-12-29] MEDS ORDERED: FLU VACC QS 2017-18 (3YR+)/PF 0.5 ML SYR (FLUARIX QUAD) IM ONE (13:05)
[2016-12-29] MEDS: PNEUMOCOCCAL 0.5ML VACCINE VIAL IM ONE ×2 (13:32→14:24)
--- NOTE | 2016-12-29 14:26 | ASMTCMCOM ---
CM Note CM Note Notes: Pt was admitted with sepsis 2/2 bilateral hand cellulitis. S/p I&D. Hx depression and anxiety. He is self pay and has been seen by [employer]; they filed a Medicaid application for financial assistance. Pt tested positive for polysubstance abuse. Currently on vanco, waiting for culture data - it's unclear if he'll need IV ABX at d/c. He may benefit from resources for his drug use.CM will follow for any d/c needs. Date Signed: 12/29/2016 02:25 PM Electronically Signed By:NOE Toledo
[2016-12-29] MEDS ORDERED: LORazepam 0.5 MG TAB PO PRN (15:59)
[2016-12-29] MEDS ORDERED: TDAP ADULT 0.5 ML INJ (BOOSTRIX) IM ONE (16:00)
[2016-12-29] MEDS ORDERED: CEPACOL LOZENGE PO PRN (16:00)
[2016-12-29] MEDS ORDERED: POVIDONE-IODINE 30 GM OINTTUBE TP PRN (18:04)
--- NOTE | 2016-12-29 19:10 | SOAPPROG ---
SOAP Progress Note Assessment/Plan: Assessment: Cricket is a pleasant 26 year old male now POD#1 from bilateral hand I&D. He reports improved pain since before surgery. He is currently resting comfortably in bed. PE: Dressings intact. Patient NV intact BUE Plan: 1. Dressings removed. Packing strips removed today (4 from the right hand, 3 from the left hand). Wounds dressed with betadine soaked gauze and new DSD placed. Dressings are to remain in place. Dressings may be reinforced, however, do not remove dressings. 2. WBAT BUE 3. Antibiotics per infectious disease 12/29/16 19:06 Objective: Vital Signs Temp Pulse Resp BP Pulse Ox 36.9 C 85 20 127/71 H 97 12/29/16 16:00 12/29/16 16:00 12/29/16 16:00 12/29/16 16:00 12/29/16 16:00 Microbiology 12/28/16 22:15 Mycobacterial Smear (TIFFANIE) - Final Hand - Tissue 12/28/16 22:15 Gram Stain - Final Hand - Eswab 12/28/16 22:15 Gram Stain - Final Hand - Tissue 12/28/16 22:15 Gram Stain - Final Hand - Eswab 12/28/16 22:15 Mycobacterial Smear (TIFFANIE) - Final Hand - Eswab Mycobacterial Culture - Final 12/28/16 22:15 Mycobacterial Smear (TIFFANIE) - Final Hand - Eswab Mycobacterial Culture - Final Laboratory Results 12/29/16 05:18 12/29/16 05:18 12/28/16 12/29/16 12/30/16 05:59 05:59 05:59 Intake Total 3750 1750 Output Total 300 800 Balance 3450 950 PT 15.1 SEC (12.0-15.0) H 12/28/16 17:20 INR 1.22 (0.83-1.16) H 12/28/16 17:20 ICD10 Worksheet Patient Problems: Problems Problem Status Onset Lymphangitis Acute Puncture wound of right hand with infection Acute Severe sepsis Acute
--- NOTE | 2016-12-29 19:48 | GCON ---
[f rep st] CONSULTATION INFECTIOUS DISEASE CONSULTATION. DATE OF CONSULTATION: 12/29/2016 PROVIDER REQUESTING CONSULT: Viktoria Otero MD REASON FOR CONSULTATION: Bilateral hand infection and right upper extremity lymphangitis. HPI: 26-year-old male who presents to the emergency room 12/28/2016 with complaints of rapidly progressive swelling of his right greater than left hand. 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 He first started noticing that his hand had some swelling and irritation on December 25, but at noon on Sunday the , his index finger started swelling and then on the day of admission he had rapidly progressive changes and noticed his arm swelling and he became increasingly concerned and presented to the emergency room. Patient had some reluctance in presenting to the emergency room due to lack of health insurance. He did describe subjective fevers for a couple days and night sweats. On the day of admission, Hand Surgery was consulted and patient went to the operating room that night with extensive debridement of the right hand including part of the wrist, but majority of debridement appears to be focused on the dorsal index finger and middle phalanx. He also had debridement of his left hand/thumb. Cultures were obtained and are growing MRSA and group A strep. Patient was started on IV vancomycin and ceftriaxone. PAST MEDICAL HISTORY: Depression, polysubstance use. No prior hospitalizations. Has not visited a doctor in over 12 years. Last used antibiotics at age 20. PAST SURGICAL HISTORY: None. FAMILY HISTORY: Reviewed and are noncontributory. SOCIAL HISTORY : Patient has previously lived in [place], now he lives in [place]. He went to the [facility] in [place]. He has a girlfriend. He smokes cigarettes. He uses marijuana and 3-5 beers a day. MEDICATIONS: He is chronically on Zoloft and Wellbutrin. In the hospital he was started on ceftriaxone and vancomycin. He is also on Toradol, Dilaudid, Zofran, oxycodone for pain. VACCINATION HISTORY: Patient is unsure of his last tetanus vaccination. ALLERGIES: NKDA. REVIEW OF SYSTEMS: A complete 10-point review of systems was performed and is negative except as mentioned in the HPI. PHYSICAL EXAMINATION: VITAL SIGNS: T-max is 39, T current 37.3, BP 144/100, HR 91, saturation 92% on room air. GENERAL: This is a young male lying in bed, no acute distress. HEENT: Pupils are reactive bilaterally. Oropharynx fair dentition. Moist mucous membranes. NECK: Supple. CARDIOVASCULAR: Regular rate, no murmurs. CHEST: Clear to auscultation bilaterally. ABDOMEN: Scaphoid , soft, nontender. RIGHT AND LEFT HANDS: Both dressings were in place with specific request from the surgeons to not remove. R fingers generally swollen. He had lymphangitis tracking up his left axilla with some associated mild tenderness at the axilla, but no palpable lymphadenopathy. Capillary refill of all fingers WNL. L hand, thumb swollen, rest of fingers swollen but to less extent than right. NEUROLOGIC: He is alert and oriented x4. Moving all 4 extremities. He did have some mild hoarseness. SKIN: Without rash other than what is described on extremity exam. LABORATORY: White count 15,000, 18,000 on admission; hematocrit 38, platelets 131. INR 1.2. Creatinine 0.8, AST 37, ALT 43, albumin 2.6. HIV, hep C and hep B screen are negative. Blood cultures collected 12/28/2016 are pending. Hand swab shows MRSA and group A strep. Multiple surgical cultures are pending, many with positive Gram stain. ASSESSMENT AND PLAN: This is a 26-year-old male with minimal medical problems who sustained trauma to his bilateral hands a couple weeks ago, who had evidence of right dorsal hand infection as well as left thumb and left ring finger infection and patient underwent debridement with cultures consistent with gram-positive organisms and initial culture showing MRSA as well as group A strep. 1. Discuss with surgery if tendon or joint involvement to determine duration of antibiotic therapy. 2. Hospitalist wrote for Tdap 3. Group A strep and MRSA on isolates; therefore, gram-negative charlotte coverage is not needed. Ceftriaxone was discontinued. 4. Continue vancomycin with a vancomycin trough tomorrow. 5. Contact precautions Thank you for this consultation. We will continue to follow on a daily basis. /[id number]/MODL MTDD
[2016-12-30] MEDS: KETOROLAC 30 MG/1 ML SDV IVP SCH ×5 (00:04→23:22)
[2016-12-30] MEDS: ACETAMINOPHEN 500 MG TAB PO SCH ×3 (03:15→18:33)
[2016-12-30] MEDS: oxyCODONE IR 5 MG TAB PO PRN ×3 (03:18→17:03)
[2016-12-30] MEDS: VANCOMYCIN 1.25 GM in D5W 250 ML IV SCH ×2 (05:56→17:03)
[2016-12-30] MEDS: diphenhydrAMINE 25 MG CAP PO PRN ×2 (06:10→17:06)
[2016-12-30 06:13] LABS: % IMMATURE GRANULYOCYTES 0.7 % (0.0-1.1); ABSOLUTE IMMATURE GRANULOCYTES 0.08 10^3/uL (0.00-0.10); ADD DIFF? NO; ADD MORPH? NO; ADD SCAN? YES; ATYPICAL LYMPHOCYTE FLAG 0 (0-99); FRAGMENT RBC FLAG 0 (0-99); HEMATOCRIT 36.9 % (40.0-51.0); HEMOGLOBIN 12.9 g/dL (13.7-17.5); LIPEMIA HEMOLYSIS FLAG 90 (0-99); MEAN CELL HEMOGLOBIN 31.1 pg (27.9-34.1); MEAN CELL VOLUME 88.9 fL (81.5-99.8); MEAN PLATELET VOLUME 9.9 fL (8.7-11.7); PLATELET CLUMPS FLAG 0 (0-99); PLATELET COUNT 121 10^3/uL (150-400); RED BLOOD CELL COUNT 4.15 10^6/uL (4.40-6.38); RED CELL DISTRIBUTION WIDTH 13.6 % (11.5-15.2)
[2016-12-30 06:24] LABS: LEFT SHIFT FLG 100 (0-99)
[2016-12-30 06:31] LABS: SCAN POSITIVE
[2016-12-30 06:35] LABS: PLATELET ESTIMATE DECREASED (ADEQ)
[2016-12-30] MEDS: SERTRALINE HCL 100 MG TAB PO SCH (09:57)
[2016-12-30] MEDS: NICOTINE 21 MG/24 HR PATCH TD SCH (09:57)
[2016-12-30] MEDS: buPROPion SR 150 MG TAB PO SCH ×2 (09:57→20:16)
--- NOTE | 2016-12-30 10:54 | HOSPPROG ---
Hospitalist Progress Note Assessment/Plan: 26y male with B hand pain. First encounter, chart reviewed. D/W Dr Jackman. #Sepsis -secondary to b/l hand cellulitis / abscess #b/l hand cellulitis/abcess -s/p I&D by orthopedic surgery, POD #2 - MRSA -wbc's trending down. - erythema persists -appreciate ID consult. Continue Vancomycin, await culture data. -Pt has not had tetanus vaccine in at least 10 yrs, will give Tdap. # Polysubstance abuse - -UDS positive for amphetamine, undetectably high opiates, bzds, and THC. -Denies IVDA. -HIV screen negative. -May need opiates for pain control, though utilize non-opiate therapies as able and minimize home Rx's for his safety. # Depression / Anxiety - -resume wellbutrin and zoloft Full code Dispo - cont inpt Subjective: Still having some pain. Reddness and swelling still. Objective: Vital Signs Temp Pulse Resp BP Pulse Ox 37.1 C 71 14 147/76 H 95 12/30/16 07:56 12/30/16 07:56 12/30/16 07:56 12/30/16 07:56 12/30/16 07:56 Microbiology 12/28/16 22:15 Gram Stain - Final Hand - Eswab 12/28/16 22:15 Mycobacterial Smear (TIFFANIE) - Final Hand - Tissue 12/28/16 22:15 Gram Stain - Final Hand - Tissue 12/28/16 22:15 Gram Stain - Final Hand - Eswab 12/28/16 22:15 Mycobacterial Smear (TIFFANIE) - Final Hand - Eswab Mycobacterial Culture - Final 12/28/16 22:15 Mycobacterial Smear (TIFFANIE) - Final Hand - Eswab Mycobacterial Culture - Final Laboratory Results 12/30/16 05:57 12/29/16 05:18 12/29/16 12/30/16 12/31/16 05:59 05:59 05:59 Intake Total 3750 1750 Output Total 300 800 Balance 3450 950 PT 15.1 SEC (12.0-15.0) H 12/28/16 17:20 INR 1.22 (0.83-1.16) H 12/28/16 17:20 - Physical Exam Constitutional: appears nourished, uncomfortable, No chronically ill appearing, No obese Eyes: PERRL, anicteric sclera, EOMI Ears, Nose, Mouth, Throat: moist mucous membranes, hearing normal, ears appear normal Cardiovascular: regular rate and rhythym, No JVD, No edema Respiratory: no respiratory distress, no rales or rhonchi, reduced air movement Gastrointestinal: normoactive bowel sounds, No tenderness, No ascites Skin: warm, erythema, No mottled Musculoskeletal: pain with ROM, muscular tenderness, generalized weakness Neurologic: AAOx3 Psychiatric: not anxious, not encephalopathic, poor insight, poor judgement ICD10 Worksheet Patient Problems: Problems Problem Status Onset Puncture wound of right hand with infection Acute Lymphangitis Acute Severe sepsis Acute
--- NOTE | 2016-12-30 13:40 | PCMIDPN ---
Assessment/Plan: Assessment/Plan: 1. Bilateral hand infections with abscess/infectious tenosynovitis and ascending lymphangitis on right: - s/p wash out 12/28/16 - Per conversation with Akua Martinez, ext tendon also involved - Operative note reviewed. Not specifically mentioned in there -Cx with MRSa, Group A strep - await susceptibilities on MRSa isolate. -blood cx ngtd -wbc improved - Currently on VAnco IV -Vanco trough pending - May have to consider completing therapy with either doxy or bactrim plus keflex given #2 2. Hx IDU: - HIV/HAV/HBV/HCv negative - IV antibiotics/picc line will be challenging in this case given above. - see #1 meds Vanco 1.25gm q12- Subjective: Afebrile. less overall pain involving both upper extremities/hands. denies sob. occasinal cough. denies abd pain or diarrhea. mom at bedside. Objective: Vital Signs Temp Pulse Resp BP Pulse Ox 37.1 C 70 16 150/78 H 95 12/30/16 12:00 12/30/16 12:00 12/30/16 12:00 12/30/16 12:00 12/30/16 12:00 Microbiology 12/28/16 22:15 Gram Stain - Final Hand - Tissue 12/28/16 22:15 Gram Stain - Final Hand - Eswab 12/28/16 22:15 Gram Stain - Final Hand - Eswab 12/28/16 22:15 Mycobacterial Smear (TIFFANIE) - Final Hand - Tissue 12/28/16 22:15 Mycobacterial Smear (TIFFANIE) - Final Hand - Eswab Mycobacterial Culture - Final 12/28/16 22:15 Mycobacterial Smear (TIFFANIE) - Final Hand - Eswab Mycobacterial Culture - Final Laboratory Results 12/30/16 05:57 12/29/16 05:18 12/29/16 12/30/16 12/31/16 05:59 05:59 05:59 Intake Total 3750 1750 Output Total 300 800 Balance 3450 950 ESR 14 MM/HR (0-15) 12/28/16 17:20 - Physical Exam General Appearance: alert, no apparent distress Respiratory: lungs clear Cardiac/Chest: regular rate, rhythm Extremities: swelling (Right forarm.), other (both hand dressed. did not take down given instructoin not to take down.) Abdomen: normal bowel sounds, non-tender, soft Skin: other (erythema present on forearm and arm. diffuse. but associate relations specialist per patient andmom. not warm. minimally tender ovoer forearm. ) ICD10 Worksheet Patient Problems: Problems Problem Status Onset Lymphangitis Acute Puncture wound of right hand with infection Acute Severe sepsis Acute
[2016-12-30] MEDS ORDERED: BISACODYL 10 MG SUPP PR PRN (16:58)
[2016-12-30] MEDS ORDERED: POLYETHYLENE GLYCOL 3350 17 GM PKT PO PRN (16:58)
[2016-12-30] MEDS ORDERED: LACTULOSE 20 GM/30 ML UDCUP PO PRN (16:58)
[2016-12-30] MEDS ORDERED: MAGNESIUM HYDROXIDE 30 ML UDCUP PO PRN (16:58)
[2016-12-30] MEDS: SENNOSIDES/DOCUSATE SODIUM TAB PO SCH (20:16)
[2016-12-31] MEDS: diphenhydrAMINE 25 MG CAP PO PRN ×2 (04:05→17:03)
[2016-12-31] MEDS: ACETAMINOPHEN 500 MG TAB PO SCH ×3 (04:05→18:21)
[2016-12-31] MEDS: VANCOMYCIN 1.25 GM in D5W 250 ML IV SCH ×2 (04:06→17:03)
[2016-12-31] MEDS: KETOROLAC 30 MG/1 ML SDV IVP SCH ×4 (06:26→23:39)
[2016-12-31] MEDS: NICOTINE 21 MG/24 HR PATCH TD SCH (09:34)
[2016-12-31] MEDS: SERTRALINE HCL 100 MG TAB PO SCH (09:34)
[2016-12-31] MEDS: SENNOSIDES/DOCUSATE SODIUM TAB PO SCH ×2 (09:35→21:44)
[2016-12-31] MEDS: buPROPion SR 150 MG TAB PO SCH ×2 (09:35→21:44)
[2016-12-31] MEDS ORDERED: PNEUMOCOCCAL 0.5ML VACCINE VIAL IM ONE (09:41)
[2016-12-31] MEDS: oxyCODONE IR 5 MG TAB PO PRN ×3 (09:46→21:44)
[2016-12-31] MEDS ORDERED: FLU VACC QS 2017-18 (3YR+)/PF 0.5 ML SYR (FLUARIX QUAD) IM ONE (10:00)
--- NOTE | 2016-12-31 10:52 | HOSPPROG ---
Hospitalist Progress Note Assessment/Plan: 26y male with B hand pain. #Sepsis -secondary to b/l hand cellulitis / abscess #b/l hand cellulitis/abcess -s/p I&D by orthopedic surgery, POD #3 - MRSA -wbc's trending down. - erythema less today -appreciate ID consult. Continue Vancomycin, await culture data. -Tdap given # Polysubstance abuse - -UDS positive for amphetamine, undetectably high opiates, bzds, and THC. -Denies IVDA. -HIV screen negative. -Pain controlled # Depression / Anxiety - -wellbutrin and zoloft Full code Dispo - cont inpt possible DC home to [place] with his mom await decision regarding IV vs PO antibiotics Subjective: Feels well today. Still some pain right greater then left hand. Objective: Vital Signs Temp Pulse Resp BP Pulse Ox 37.3 C 68 18 156/78 H 96 12/31/16 08:00 12/31/16 08:00 12/31/16 08:00 12/31/16 08:00 12/31/16 08:00 Microbiology 12/28/16 22:15 Gram Stain - Final Hand - Eswab 12/28/16 22:15 Gram Stain - Final Hand - Eswab 12/28/16 22:15 Gram Stain - Final Hand - Tissue Laboratory Results 12/30/16 05:57 12/29/16 05:18 12/30/16 12/31/16 01/01/17 05:59 05:59 05:59 Intake Total 1750 Output Total 800 Balance 950 PT 15.1 SEC (12.0-15.0) H 12/28/16 17:20 INR 1.22 (0.83-1.16) H 12/28/16 17:20 - Physical Exam Constitutional: appears nourished, uncomfortable Eyes: PERRL, anicteric sclera Ears, Nose, Mouth, Throat: moist mucous membranes, hearing normal Cardiovascular: regular rate and rhythym, No JVD Respiratory: no respiratory distress, reduced air movement Gastrointestinal: No tenderness, No ascites Skin: warm, erythema Musculoskeletal: pain with ROM, muscular tenderness, No normal joint ROM Neurologic: AAOx3 Psychiatric: not anxious, not encephalopathic, poor insight, poor judgement ICD10 Worksheet Patient Problems: Problems Problem Status Onset Puncture wound of right hand with infection Acute Lymphangitis Acute Severe sepsis Acute
--- NOTE | 2016-12-31 11:36 | PCMIDPN ---
Assessment/Plan: Assessment/Plan: 1. Bilateral hand infections with abscess/infectious tenosynovitis and ascending lymphangitis on right: - s/p wash out 12/28/16 - Per conversation with Akua Martinez, ext tendon also involved - Operative note reviewed. Not specifically mentioned in there -Cx with MRSa, Group A strep - Mrsa sensitivities reviewed. vanco TIFFANIE=1, sensitive to bactrim but not to doxycycline -blood cx ngtd -wbc improved - Currently on VAnco IV, continue for now. -Vanco trough 9.6. - May have to consider completing therapy with bactrim plus keflex given #2 - await ortho re-evaluation and decision on whether patient needs any further wash out. - hopefully can coordinate examination of wounds with ortho. -plan of care reviewed with patient, mom - care coordinated with hospitalist team. 2. Hx IDU: - HIV/HAV/HBV/HCv negative - IV antibiotics/picc line will be challenging in this case given above. - see #1 meds Vanco 1.25gm q12- Subjective: afebrile. feeling better. pain overall pain. right hand hurts more than left. redness decreasing on the left forearm. denies sob, abd pain or diarrhea. Objective: Vital Signs Temp Pulse Resp BP Pulse Ox 37.1 C 68 18 156/78 H 96 12/31/16 10:15 12/31/16 08:00 12/31/16 08:00 12/31/16 08:00 12/31/16 08:00 Microbiology 12/28/16 22:15 Gram Stain - Final Hand - Tissue 12/28/16 22:15 Gram Stain - Final Hand - Eswab 12/28/16 22:15 Gram Stain - Final Hand - Eswab Laboratory Results 12/30/16 05:57 12/29/16 05:18 12/30/16 12/31/16 01/01/17 05:59 05:59 05:59 Intake Total 1750 Output Total 800 Balance 950 ESR 14 MM/HR (0-15) 12/28/16 17:20 - Physical Exam General Appearance: alert, no apparent distress Respiratory: lungs clear Cardiac/Chest: regular rate, rhythm Extremities: swelling Abdomen: normal bowel sounds, non-tender, soft, No distended Skin: erythema (left forearm and arm with residual erythema noted. improved compared to yesterday. swelling inovvling the forearm. both hands in dressing, with instructions not to take down, so didnt'. viewed pictures on patient's phone of site. sutures noted. some redness especially involving the index finger of right hand.) ICD10 Worksheet Patient Problems: Problems Problem Status Onset Lymphangitis Acute Puncture wound of right hand with infection Acute Severe sepsis Acute
--- NOTE | 2016-12-31 14:35 | SOAPPROG ---
SOAP Progress Note Assessment/Plan: Assessment: HPI: 26 y/o male now POD#2 from right index, right long, right ring, right small , right volar wrist, left dorsal thumb metacarpal, left thumb felon, and left ring finger felon I&D on 12/28/16. He reports that his pain in both hands has decreased dramatically since the surgery and, overall, he is feeling better and better. PE: Gen: NAD AVSS RUE: Right hand and wrist incisions are nicely approximated with significantly reduced and receding erythema, no purulent drainage from the wounds +EDC, EPL, FPL, FDS, FDP, FDP-I, DI, PI +SILT in M/R/U distributions 2+ radial and ulnar pulses LUE: Left hand incisions are nicely approximated with significantly reduced and receding erythema, no purulent drainage from the wounds +EDC, EPL, FPL, FDS, FDP, FDP-I, DI, PI +SILT in M/R/U distributions 2+ radial and ulnar pulses Assessment and Plan 26 y/o male now POD#2 from right index, right long, right ring, right small, right volar wrist, left dorsal thumb metacarpal, left thumb felon, and left ring finger felon I&D on 12/28/16 doing well -New dressings applied to both hands to be left in place -Keep both hands clean and dry -PO pain medications -Continue antibiotics per ID recommendations -Encourage wrist, finger, and thumb ROM -FU as an outpatient in one week for repeat wound checks 12/31/16 14:31 Objective: Vital Signs Temp Pulse Resp BP Pulse Ox 37.3 C 66 14 119/72 97 12/31/16 11:43 12/31/16 11:43 12/31/16 11:43 12/31/16 11:43 12/31/16 11:43 Microbiology 12/28/16 22:15 Gram Stain - Final Hand - Tissue 12/28/16 22:15 Gram Stain - Final Hand - Eswab 12/28/16 22:15 Gram Stain - Final Hand - Eswab Laboratory Results 12/30/16 05:57 12/29/16 05:18 12/30/16 12/31/16 01/01/17 05:59 05:59 05:59 Intake Total 1750 Output Total 800 Balance 950 PT 15.1 SEC (12.0-15.0) H 12/28/16 17:20 INR 1.22 (0.83-1.16) H 12/28/16 17:20 ICD10 Worksheet Patient Problems: Problems Problem Status Onset Lymphangitis Acute Puncture wound of right hand with infection Acute Severe sepsis Acute
--- NOTE | 2016-12-31 16:35 | ASMTCMCOM ---
CM Note CM Note Notes: CM met w/ pt for dispo planning. It is uncertain if pt will d/c with IV antibiotics at time of d/c. CM will f/u with ID tomorrow. CM offered substance abuse resources. Pt reports that he is not interested at this time. CM available for d/c needs. Date Signed: 12/31/2016 04:35 PM Electronically Signed By:ILYA Abbasi
[2016-12-31] MEDS: DAPTOmycin 300 MG in NS 100 ML IV SCH (20:14)
[2017-01-01] MEDS: oxyCODONE IR 5 MG TAB PO PRN ×4 (03:44→22:07)
[2017-01-01] MEDS: ACETAMINOPHEN 500 MG TAB PO SCH ×3 (03:44→18:44)
[2017-01-01 05:03] LABS: % IMMATURE GRANULYOCYTES 1.6 % (0.0-1.1); ABSOLUTE IMMATURE GRANULOCYTES 0.16 10^3/uL (0.00-0.10); ADD DIFF? NO; ADD MORPH? NO; ADD SCAN? NO; ATYPICAL LYMPHOCYTE FLAG 10 (0-99); FRAGMENT RBC FLAG 0 (0-99); HEMATOCRIT 38.3 % (40.0-51.0); LEFT SHIFT FLG 20 (0-99); LIPEMIA HEMOLYSIS FLAG 90 (0-99); MEAN CELL HEMOGLOBIN 30.1 pg (27.9-34.1); MEAN CELL HEMOGLOBIN CONCENTR. 33.9 g/dL (32.4-36.7); MEAN CELL VOLUME 88.7 fL (81.5-99.8); PLATELET CLUMPS FLAG 0 (0-99); PLATELET COUNT 161 10^3/uL (150-400); RED BLOOD CELL COUNT 4.32 10^6/uL (4.40-6.38); RED CELL DISTRIBUTION WIDTH 13.5 % (11.5-15.2)
[2017-01-01 05:14] LABS: ALANINE AMINOTRANSFERASE 55 IU/L (21-72); ALBUMIN 2.8 g/dL (3.5-5.0); ALKALINE PHOSPHATASE 124 IU/L (38-126); ANION GAP 8 mEq/L (8-16); ASPARTATE AMINOTRANSFERASE 34 IU/L (17-59); BILIRUBIN,TOTAL 0.4 mg/dL (0.1-1.4); CARBON DIOXIDE 25 mEq/l (22-31); CHLORIDE 101 mEq/L (97-110); CREATININE 0.8 mg/dL (0.7-1.3); GLOMERULAR FILTRATION RATE > 60; GLUCOSE 115 mg/dL (70-100); SODIUM 134 mEq/L (134-144); TOTAL PROTEIN 5.3 g/dL (6.3-8.2)
[2017-01-01] MEDS: KETOROLAC 30 MG/1 ML SDV IVP SCH ×4 (06:05→23:19)
[2017-01-01] MEDS: NICOTINE 21 MG/24 HR PATCH TD SCH (10:36)
[2017-01-01] MEDS: SERTRALINE HCL 100 MG TAB PO SCH (10:36)
[2017-01-01] MEDS: SENNOSIDES/DOCUSATE SODIUM TAB PO SCH ×2 (10:37→20:46)
[2017-01-01] MEDS: buPROPion SR 150 MG TAB PO SCH ×2 (10:37→20:46)
--- NOTE | 2017-01-01 14:06 | HOSPPROG ---
Hospitalist Progress Note Assessment/Plan: 26y male with B hand pain. D/W Dr koroma #Sepsis -secondary to b/l hand cellulitis / abscess #b/l hand cellulitis/abcess -s/p I&D by orthopedic surgery, POD #4 - MRSA -wbc's trending down. - erythema much better today -appreciate ID consult. -Tdap given - reaction to vanco, transitioned to dapto # Polysubstance abuse - -UDS positive for amphetamine, undetectably high opiates, bzds, and THC. -Denies IVDA. -HIV screen negative. -Pain controlled # Depression / Anxiety - -wellbutrin and zoloft Full code Dispo - cont inpt possible DC home to [place] with his mom await decision regarding IV vs PO antibiotics from ID Subjective: Feeling much better. Still having some pain. Less swelling. Objective: Vital Signs Temp Pulse Resp BP Pulse Ox 37.2 C 60 16 107/62 96 01/01/17 11:56 01/01/17 11:56 01/01/17 11:56 01/01/17 11:56 01/01/17 11:56 Microbiology 12/28/16 22:15 Gram Stain - Final Hand - Tissue 12/28/16 22:15 Gram Stain - Final Hand - Eswab 12/28/16 22:15 Gram Stain - Final Hand - Eswab Laboratory Results 01/01/17 04:41 01/01/17 04:41 PT 15.1 SEC (12.0-15.0) H 12/28/16 17:20 INR 1.22 (0.83-1.16) H 12/28/16 17:20 - Physical Exam Constitutional: no apparent distress, appears nourished, uncomfortable Eyes: PERRL, anicteric sclera, EOMI Ears, Nose, Mouth, Throat: moist mucous membranes, hearing normal, ears appear normal Cardiovascular: regular rate and rhythym, No JVD, No edema Respiratory: no respiratory distress, no rales or rhonchi, reduced air movement Gastrointestinal: normoactive bowel sounds, No tenderness, No ascites Skin: warm, erythema, No mottled Musculoskeletal: no joint effusions, pain with ROM, generalized weakness Neurologic: AAOx3 Psychiatric: not anxious, not encephalopathic, thought process linear ICD10 Worksheet Patient Problems: Problems Problem Status Onset Methicillin resistant Staphylococcus aureus infection Acute ~12/28/16 Puncture wound of right hand with infection Acute Lymphangitis Acute Severe sepsis Acute
--- NOTE | 2017-01-01 17:49 | PCMIDPN ---
Assessment/Plan: Assessment/Plan: * Bilateral hand abscess/ tenosynovitis with ascending lymphangitis on right status post debridement: Marked clinical improvement post debridement with resolution of lymphangitis. Culture show growth of growth MRSA and group A Streptococcus. Think he can transition to oral antibiotics after dose of daptomycin this evening. Will treat with Bactrim-DS twice daily and amoxicillin 500 mg three times daily to complete 21 days of therapy in total given presence of tenosynovitis. Side effects of antibiotics discussed with patient including risk of allergic reactions including severe skin reactions. Follow-up with Dr. Seth on in our office. 01/01/17 17:46 01/01/17 17:51 Subjective: Patient feels significantly improved with marked improvement in hand range of motion and decreased tenderness. Red streak along upper arm on the right has resolved. Vancomycin discontinued and changed to daptomycin yesterday as patient developed localized hives along a arm where infusion being given. Objective: Vital Signs Temp Pulse Resp BP Pulse Ox 37.4 C 73 16 107/62 98 01/01/17 15:56 01/01/17 15:56 01/01/17 15:56 01/01/17 15:56 01/01/17 15:56 Microbiology 12/28/16 22:15 Gram Stain - Final Hand - Tissue 12/28/16 22:15 Gram Stain - Final Hand - Eswab 12/28/16 22:15 Gram Stain - Final Hand - Eswab Laboratory Results 01/01/17 04:41 01/01/17 04:41 ESR 14 MM/HR (0-15) 12/28/16 17:20 Daptomycin # 2 Antibiotics # 4 Operative cultures with growth of MRSA and group A Streptococcus Blood cultures x2 no growth - Physical Exam General Appearance: alert, no apparent distress EENT: No conjunctival petechiae Cardiac/Chest: regular rate, rhythm, No systolic murmur Extremities: inflammation ( bilateral hands dressed postoperatively; minimal cellulitis over right forearm; able to move fingers except for index finger well; left hand with no cellulitis and marked improvement in range of motion) Lymphatic: other ( no lymphangitis in right upper extremity) ICD10 Worksheet Patient Problems: Problems Problem Status Onset Lymphangitis Acute Methicillin resistant Staphylococcus aureus infection Acute ~12/28/16 Puncture wound of right hand with infection Acute Severe sepsis Acute
[2017-01-01] MEDS: DAPTOmycin 300 MG in NS 100 ML IV SCH (18:48)
[2017-01-02] MEDS: ACETAMINOPHEN 500 MG TAB PO SCH ×2 (02:59→12:27)
[2017-01-02] MEDS: KETOROLAC 30 MG/1 ML SDV IVP SCH ×2 (05:27→12:27)
[2017-01-02] MEDS: oxyCODONE IR 5 MG TAB PO PRN ×2 (05:32→10:13)
[2017-01-02 08:00] VITALS: RESP 20
[2017-01-02] MEDS: NICOTINE 21 MG/24 HR PATCH TD SCH (10:08)
[2017-01-02] MEDS: SENNOSIDES/DOCUSATE SODIUM TAB PO SCH (10:08)
[2017-01-02] MEDS: SERTRALINE HCL 100 MG TAB PO SCH (10:08)
[2017-01-02] MEDS: buPROPion SR 150 MG TAB PO SCH (10:08)
[2017-01-02 11:11] VITALS: BP 117/59; PULSE 69; TEMP 98.4; O2SAT 95
--- NOTE | 2017-01-02 12:51 | HOSPPROG ---
Hospitalist Progress Note Assessment/Plan: 26y male with B hand pain. Today is my first encounter with the patient, chart reviewed. #Sepsis -secondary to b/l hand cellulitis / abscess #b/l hand cellulitis/abcess -s/p I&D by orthopedic surgery, POD #5 - MRSA -treated with daptomycin. Will go home on amoxicillin and Bactrim DS -pain is well managed # Polysubstance abuse - -UDS positive for amphetamine, undetectable high opiates, bzds, and THC. -Denies IVDA. -HIV screen negative. -Pain controlled # Depression / Anxiety - -Wellbutrin and Zoloft Plan. Will discharge back to home. He will have follow-up appointments with Dr. Seth and Dr. Olmos Subjective: Patient is feeling much better today. Up in the room ambulating. Ready to be discharged Objective: Vital Signs Temp Pulse Resp BP Pulse Ox 36.9 C 69 20 117/59 L 95 01/02/17 11:11 01/02/17 11:11 01/02/17 11:11 01/02/17 11:11 01/02/17 11:11 Microbiology 12/28/16 22:15 Mycobacterial Smear (TIFFANIE) - Final Hand - Tissue 12/28/16 22:15 Gram Stain - Final Hand - Tissue 12/28/16 22:15 Gram Stain - Final Hand - Eswab 12/28/16 22:15 Gram Stain - Final Hand - Eswab Laboratory Results 01/01/17 04:41 01/01/17 04:41 PT 15.1 SEC (12.0-15.0) H 12/28/16 17:20 INR 1.22 (0.83-1.16) H 12/28/16 17:20 - Physical Exam Constitutional: no apparent distress, appears nourished, not in pain Eyes: PERRL Ears, Nose, Mouth, Throat: hearing normal Respiratory: no respiratory distress Skin: warm, other (Bilateral hands with dressings in place) Musculoskeletal: full muscle strength Neurologic: AAOx3 Psychiatric: interacting appropriately, not anxious ICD10 Worksheet Patient Problems: Problems Problem Status Onset Lymphangitis Acute Methicillin resistant Staphylococcus aureus infection Acute ~12/28/16 Puncture wound of right hand with infection Acute Severe sepsis Acute
--- NOTE | 2017-01-02 13:53 | PCMIDPN ---
Assessment/Plan: Assessment/Plan: 1. Bilateral hand infections with abscess/infectious tenosynovitis and ascending lymphangitis on right: - s/p wash out 12/28/16 - Per conversation with Akua Martinez, ext tendon also involved - Operative note reviewed. Not specifically mentioned in there -Cx with MRSa, Group A strep - Mrsa sensitivities reviewed. vanco TIFFANIE=1, sensitive to bactrim but not to doxycycline -blood cx ngtd -wbc improved - Currently on Dapto IV, continue for now. -ok to d/c from ID standpoint on oral bactrim + amox x 21 days. - pt to have f/u in our office on 01/04 at 3pm. If he goes to [place], recommended he have f/u while there as well. -pt to have ortho f/u on Sundayjan 08 -plan of care reviewed with patient, mom. - care coordinated with hospitalist team. 2. Hx IDU: - HIV/HAV/HBV/HCv negative - IV antibiotics/picc line will be challenging in this case given above. - see #1 meds dapto 300mg daily s/p Vanco 1.25gm q12- Subjective: afebrile. feels better each. less swelling involving righ forearm and arm and thumb. denies sob, abd pain. had loose stools yesterday, none today. Objective: Vital Signs Temp Pulse Resp BP Pulse Ox 36.9 C 69 20 117/59 L 95 01/02/17 11:11 01/02/17 11:11 01/02/17 11:11 01/02/17 11:11 01/02/17 11:11 Microbiology 12/28/16 22:15 Gram Stain - Final Hand - Tissue 12/28/16 22:15 Gram Stain - Final Hand - Eswab 12/28/16 22:15 Gram Stain - Final Hand - Eswab 12/28/16 22:15 Mycobacterial Smear (TIFFANIE) - Final Hand - Tissue Laboratory Results 01/01/17 04:41 01/01/17 04:41 ESR 14 MM/HR (0-15) 12/28/16 17:20 - Physical Exam General Appearance: alert, no apparent distress Respiratory: lungs clear Cardiac/Chest: regular rate, rhythm Extremities: swelling (mild residual swelling involving right forearm. resolved ascending lymphangitis.) Abdomen: normal bowel sounds, non-tender, soft, No distended Skin: No rash ICD10 Worksheet Patient Problems: Problems Problem Status Onset Lymphangitis Acute Methicillin resistant Staphylococcus aureus infection Acute ~12/28/16 Puncture wound of right hand with infection Acute Severe sepsis Acute
--- NOTE | 2017-01-02 15:19 | GDS ---
[f rep st] DISCHARGE SUMMARY DISCHARGE DIAGNOSES: 1. Sepsis secondary to bilateral hand cellulitis and abscess. 2. Bilateral hand cellulitis and abscess, status post incision and drainage. 3. Polysubstance abuse. 4. Depression and anxiety. CONSULTATIONS: 1. Dr. Shreyas Garcia. 2. Dr. Rekha Seth. HOSPITAL COURSE: Briefly, the patient is a 26-year-old gentleman who presented to the emergency room on December 28 with complaints of rapidly progressing swelling of his right hand greater than his left hand. He works outside and does [employer], but had particularly severe trauma 2 weeks prior to his admission. He was trying to shove a mattress in his trunk at a rest area. The trunk cut his hand. He started noticing that he had some swelling. On admission, Dr. Garcia was consulted, and the patient went to the operating room that night for extensive debridement of the right hand, including part of the wrist. The majority of the debridement was focused on the dorsal index and middle phalanx. Cultures were obtained. He grew out MRSA and group A strep. He was initially treated with vancomycin and ceftriaxone, had a reaction to the vancomycin and was placed on daptomycin. Today, he will be discharged home. He will further follow up with Dr. Seth in the outpatient setting. HOSPITAL COURSE: 1. Sepsis, resolved. This is secondary to bilateral hand infections, cellulitis. 2. Bilateral hand infections with abscess, infectious tenosynovitis and ascending lymphangitis on his right hand. He is status post washout on the 28 of December. Cultures grew out MRSA, as well as group A strep. He will follow up with Orthopedics on Sunday, January 08, and follow up with the Infectious Disease team on January 04. 3. Polysubstance abuse. He denies any IV drug use. HIV screen is negative. His urine drug screen was positive for amphetamines, high opiates, benzodiazepines, and THC. I did not discharge him on any narcotics. He was fine with this. He will take Advil and Tylenol for pain. 4. Depression and anxiety. Resume Wellbutrin and Zoloft. DISCHARGE CONDITION: Stable. Blood pressure is 117/59, O2 saturation on room air 95%. Respiratory rate is 20. Pulse is 69. Temperature is 36.9 Celsius. DISCHARGE MEDICATIONS: Please see the EMR. DISCHARGE INSTRUCTIONS: 1. To follow up with Dr. Seth as scheduled. 2. To follow up with Dr. Garcia on Sunday. 3. If he develops fever, chills, to call the Infectious Disease team immediately. 4. To stay well hydrated, especially while on the Bactrim. 5. To avoid alcohol or any type of drugs. Greater than 30 minutes discharging and coordinating his care. /[id number]/MODL MTDD
--- NOTE | 2017-01-02 16:10 | ASDISCHSUM ---
Discharge Information Plan Status:Home with No Needs Medically Cleared to Leave: Discharge Date:01/02/2017 03:22 PM CM D/C Disposition:Home, Routine, Self-Care ADT D/C Disposition:Home, Routine, Self-Care Projected Discharge Date:01/02/2017 03:22 PM Transportation at D/C:Family Discharge Delay Reason: Follow-Up Date:01/02/2017 03:22 PM Discharge Slot: Final Diagnosis: Placement Information Patient Contact Information Contact Name:VIVIENNE Relationship:Friend Address: Work Phone: City: [facility] Phone: State/Zip Code: Email: Financial Information Financial Class:Self-Pay Primary Plan Desc:SELF PAY Primary Plan Number: Secondary Plan Desc: Secondary Plan Number: Assessment Information [facility] CM Progress Note CM Note CM Note Notes: Pt was admitted with sepsis 2/2 bilateral hand cellulitis. S/p I&D. Hx depression and anxiety. He is self pay and has been seen by [employer]; they filed a Medicaid application for financial assistance. Pt tested positive for polysubstance abuse. Currently on vanco, waiting for culture data - it's unclear if he'll need IV ABX at d/c. He may benefit from resources for his drug use.CM will follow for any d/c needs. Date Signed: 12/29/2016 02:25 PM Electronically Signed By:NOE Toledo [facility] CM Progress Note CM Note CM Note Notes: CM met w/ pt for dispo planning. It is uncertain if pt will d/c with IV antibiotics at time of d/c. CM will f/u with ID tomorrow. CM offered substance abuse resources. Pt reports that he is not interested at this time. CM available for d/c needs. Date Signed: 12/31/2016 04:35 PM Electronically Signed By:ILYA Abbasi Intervention Information
== END 2017-01-02 15:22 | disposition home or self-care (01) | DRG 854 ==
LOC: CED 16:42 → CEDHOLD 17:45 → F2N 19:45 → F3E 12-29 15:00
PROVIDERS: ADMIT Internal Medicine; ATTEND Internal Medicine
PROC: 0J9J0ZZ Drainage of Right Hand Subcutaneous Tissue and Fascia, Open Approach (ICD-10-PCS; principal; 2016-12-28 20:30)
PROC: 0R9W0ZZ Drainage of Right Finger Phalangeal Joint, Open Approach (ICD-10-PCS; principal; 2016-12-28 20:30)
PROC: 0J9G0ZZ Drainage of Right Lower Arm Subcutaneous Tissue and Fascia, Open Approach (ICD-10-PCS; principal; 2016-12-28 20:30)
PROC: 0R9X0ZZ Drainage of Left Finger Phalangeal Joint, Open Approach (ICD-10-PCS; principal; 2016-12-28 20:30)
PROC: 0R9U0ZZ Drainage of Right Metacarpophalangeal Joint, Open Approach (ICD-10-PCS; principal; 2016-12-28 20:30)
PROC: 0R9V0ZZ Drainage of Left Metacarpophalangeal Joint, Open Approach (ICD-10-PCS; principal; 2016-12-28 20:30)
PROC: 0L9700Z Drainage of Right Hand Tendon with Drainage Device, Open Approach (ICD-10-PCS; principal; 2016-12-28 20:30)
PROC: 0J9K0ZZ Drainage of Left Hand Subcutaneous Tissue and Fascia, Open Approach (ICD-10-PCS; principal; 2016-12-28 20:30)
DX: A41.01 Sepsis due to Methicillin susceptible Staphylococcus aureus (principal); L03.113 Cellulitis of right upper limb; L03.114 Cellulitis of left upper limb; L02.511 Cutaneous abscess of right hand; L02.512 Cutaneous abscess of left hand; L03.123 Acute lymphangitis of right upper limb; M65.041 Abscess of tendon sheath, right hand; M65.141 Other infective (teno)synovitis, right hand; B95.0 Streptococcus, group A, as the cause of diseases classified elsewhere; F15.10 Other stimulant abuse, uncomplicated; F11.10 Opioid abuse, uncomplicated; F19.10 Other psychoactive substance abuse, uncomplicated; F32.9 Major depressive disorder, single episode, unspecified; F41.9 Anxiety disorder, unspecified; R65.20 Severe sepsis without septic shock; Z72.0 Tobacco use; Z23 Encounter for immunization
CPT/HCPCS: 73130-PO; 80048-PO; 80307; 81003-PO; 81015-PO; 83605-PO; 85025-PO; 85610-PO; 85652-PO; 85730-PO; G0008; G0009; G0472; G0480; J0690; J0696; J0878; J1170; J1885; J2001; J2250; J2405; J2704; J3010; J3370

== ENCOUNTER 2017-01-26 02:29 | Inpatient (IN) | payer MEDICAID ==
--- NOTE | 2017-01-26 03:15 | EDPHY ---
H & P Stated Complaint: pt admitted for septic wound to R hand, abx done yest, now pain swelling Time Seen by Provider: 01/26/17 03:04 HPI/ROS: Chief Complaint: Right hand pain and swelling HPI: A 26-year-old male was recently treated for an MRI say infection in tenosynovitis of his right hand. Patient completed his amoxicillin and Bactrim yesterday. This morning woke up and noticed that his hand is more swollen and red. He has had worsening pain over the last hour so. States that feels very similar to when he came in initially with infection. He did follow up with infectious disease and hand surgery earlier this week without he was healing well. He states that he is increasingly swollen. No fevers or chills. No nausea or vomiting. ROS: 10 point Review of Systems is negative except as noted in the HPI. PMH: MRSA right hand Social History: No smoking, no alcohol, no recreational drug use Family History: non-contributory Physical Exam: Gen: Awake, Alert, No Distress HEENT: Nose: no rhinorrhea Eyes: PERRLA, EOMI Mouth: Moist mucosa Neck: Supple, no JVD Chest: nontender, lungs clear to auscultation Heart: S1, S2 normal, no murmur Abd: Soft, non-tender, no guarding Back: no CVA tenderness, no midline tenderness Ext: Right hand is swollen with palm or erythema. His index finger is swollen. He is not holding it in flexion. He does not have pain with passive range of motion. There is some warmth on the dorsal and volar aspect. Neuro: CN II-XII intact, Sensation grossly intact, Strength 5/5 in bilateral upper and lower extremities - Medical/Surgical History Hx Asthma: No Hx Chronic Respiratory Disease: No Hx Diabetes: No Hx Cardiac Disease: No Hx Renal Disease: No Hx Cirrhosis: No Hx Alcoholism: No Hx HIV/AIDS: No Hx Splenectomy or Spleen Trauma: No Other PMH: sepsis related to hand wound, depression, R hand surg related to hand - Social History Smoking Status: Current some day smoker Constitutional: Initial Vital Signs Temperature (C) 36.8 C 01/26/17 02:35 Heart Rate 85 01/26/17 02:35 Respiratory Rate 18 01/26/17 02:35 Blood Pressure 139/102 H 01/26/17 02:35 O2 Sat (%) 97 01/26/17 02:35 O2 Delivery Mode Room Air Allergies/Adverse Reactions: vancomycin Allergy (Verified 01/26/17 02:40) Home Medications: Medication Instructions Recorded Sertraline HCl [Zoloft 100mg (*)] 100 mg PO DAILY 12/28/16 buPROPion SR [Wellbutrin 150mg SR 150 mg PO BID 12/28/16 (*)] Acetaminophen [Tylenol ES 500 mg 1,000 mg PO Q8H tab 01/02/17 (*)] Amoxicillin Trihydrate [Amoxil] 500 mg PO TID 19 Days #57 cap 01/02/17 Sulfamethox/Tmp 800/160 mg 1 tab PO BID #38 tab 01/02/17 [Bactrim Ds] Medical Decision Making ED Course/Re-evaluation: I have reviewed the patient's chart. While in the hospital he was on daptomycin , 300 mg daily. I have discussed with Dr. Ruiz, infectious Disease. He agrees with the plan to restart the patient on his original dose of daptomycin. He will related Dr. Seth will consult on the patient in the hospital. - Data Points Laboratory Results: Laboratory Results 01/26/17 03:12 01/26/17 01/26/17 03:12 03:12 WBC 10.64 10^3/uL H 10^3/uL (3.80-9.50) RBC 4.87 10^6/uL 10^6/uL (4.40-6.38) Hgb 14.5 g/dL g/dL (13.7-17.5) Hct 42.6 % % (40.0-51.0) MCV 87.5 fL fL (81.5-99.8) MCH 29.8 pg pg (27.9-34.1) MCHC 34.0 g/dL g/dL (32.4-36.7) RDW 13.6 % % (11.5-15.2) Plt Count 188 10^3/uL 10^3/uL (150-400) MPV 10.4 fL fL (8.7-11.7) Neut % (Auto) 68.3 % % (39.3-74.2) Lymph % (Auto) 21.7 % % (15.0-45.0) [place] % (Auto) 8.3 % % (4.5-13.0) Eos % (Auto) 0.8 % % (0.6-7.6) Baso % (Auto) 0.6 % % (0.3-1.7) Nucleat RBC Rel Count 0.0 % % (0.0-0.2) Absolute Neuts (auto) 7.27 10^3/uL H 10^3/uL (1.70-6.50) Absolute Lymphs (auto) 2.31 10^3/uL 10^3/uL (1.00-3.00) Absolute Monos (auto) 0.88 10^3/uL H 10^3/uL (0.30-0.80) Absolute Eos (auto) 0.09 10^3/uL 10^3/uL (0.03-0.40) Absolute Basos (auto) 0.06 10^3/uL 10^3/uL (0.02-0.10) Absolute Nucleated RBC 0.00 10^3/uL 10^3/uL (0-0.01) Immature Gran % 0.3 % % (0.0-1.1) Immature Gran # 0.03 10^3/uL 10^3/uL (0.00-0.10) Sodium Pending Potassium Pending Chloride Pending Carbon Dioxide Pending Anion Gap Pending BUN Pending Creatinine Pending Estimated GFR Pending Glucose Pending Calcium Pending Total Bilirubin Pending AST Pending ALT Pending Alkaline Phosphatase Pending Total Protein Pending Albumin Pending Departure - Departure Disposition: [facility] Inpatient Acute Clinical Impression: Infected hand Condition: Fair Referrals: NONE *PRIMARY CARE P,. [Primary Care Provider] - As per Instructions
[2017-01-26 03:25] LABS: % IMMATURE GRANULYOCYTES 0.3 % (0.0-1.1); ABSOLUTE IMMATURE GRANULOCYTES 0.03 10^3/uL (0.00-0.10); ADD DIFF? NO; ADD MORPH? NO; ADD SCAN? NO; ATYPICAL LYMPHOCYTE FLAG 0 (0-99); FRAGMENT RBC FLAG 0 (0-99); HEMATOCRIT 42.6 % (40.0-51.0); HEMOGLOBIN 14.5 g/dL (13.7-17.5); LEFT SHIFT FLG 0 (0-99); LIPEMIA HEMOLYSIS FLAG 90 (0-99); MEAN CELL HEMOGLOBIN 29.8 pg (27.9-34.1); MEAN CELL VOLUME 87.5 fL (81.5-99.8); MEAN PLATELET VOLUME 10.4 fL (8.7-11.7); PLATELET CLUMPS FLAG 20 (0-99); PLATELET COUNT 188 10^3/uL (150-400); RED BLOOD CELL COUNT 4.87 10^6/uL (4.40-6.38); RED CELL DISTRIBUTION WIDTH 13.6 % (11.5-15.2)
[2017-01-26 03:38] LABS: ALANINE AMINOTRANSFERASE 40 IU/L (21-72); ALBUMIN 4.5 g/dL (3.5-5.0); ALKALINE PHOSPHATASE 73 IU/L (38-126); ANION GAP 15 mEq/L (8-16); ASPARTATE AMINOTRANSFERASE 25 IU/L (17-59); BILIRUBIN,TOTAL 0.2 mg/dL (0.1-1.4); CALCIUM 9.5 mg/dL (8.5-10.4); CARBON DIOXIDE 20 mEq/l (22-31); CHLORIDE 105 mEq/L (97-110); CREATININE 0.9 mg/dL (0.7-1.3); GLOMERULAR FILTRATION RATE > 60; GLUCOSE 94 mg/dL (70-100); POTASSIUM 4.1 mEq/L (3.5-5.2); SODIUM 140 mEq/L (134-144); TOTAL PROTEIN 6.7 g/dL (6.3-8.2)
[2017-01-26] MEDS ORDERED: DAPTOmycin 300 MG in NS 100 ML IV ONE (03:53)
[2017-01-26] MEDS ORDERED: fentaNYL 100 MCG/2 ML INJ IVP ONE (03:56)
[2017-01-26] MEDS ORDERED: fentaNYL 100 MCG/2 ML INJ ONE (03:56)
[2017-01-26] MEDS ORDERED: ACETAMINOPHEN 325 MG TAB PO PRN (04:00)
[2017-01-26] MEDS ORDERED: ONDANSETRON DISINTEGRATING 4 MG TAB PO PRN (04:00)
[2017-01-26] MEDS ORDERED: ONDANSETRON 4 MG/2 ML VIAL IVP PRN (04:00)
[2017-01-26] MEDS ORDERED: oxyCODONE IR 5 MG TAB PO PRN (04:00)
--- NOTE | 2017-01-26 04:06 | PDGENHP ---
History and Physical - Chief Complaint Hand redness - History of Present Illness 26 yo M w/ recent admission for bilateral hand cellulitis presents with hand redness. Patient was admitted in December for bilateral hand cellulitis after trauma. He required surgical debridement of the R dorsal 2rd and 3rd phalanx. Cultures grew out MRSA and Group A strep. He was initially treated with Daptomycin and then transitioned to orals. He had been doing well until he finished his course of oral Bactrim and Augmentin yesterday and then he began to noting recurring redness so he decided to come to the ED. Most of the redness is in 2nd finger. History Information - Allergies/Home Medication List Allergies/Adverse Reactions: vancomycin Allergy (Verified 01/26/17 02:40) Home Medications: Sertraline HCl [Zoloft 100mg (*)] 100 mg PO DAILY 12/28/16 [Last Taken Unknown] buPROPion SR [Wellbutrin 150mg SR (*)] 150 mg PO BID 12/28/16 [Last Taken Unknown] I have personally reviewed and updated: family history, medical history - Past Medical History Additional medical history: Bilateral hand cellulitis, MRSA - Surgical History Additional surgical history: I&D of R hand in December 2016 - Family History Positive for: cancer - Social History Smoking Status: Current some day smoker Review of Systems Review of Systems: ROS: 10pt was reviewed & negative except for what was stated in HPI & below Physical Exam Physical Exam: Temp Pulse Resp BP Pulse Ox 36.8 C 85 18 139/102 H 97 01/26/17 02:35 01/26/17 02:35 01/26/17 02:35 01/26/17 02:35 01/26/17 02:35 Constitutional: no apparent distress, not in pain Eyes: PERRL, EOMI Ears, Nose, Mouth, Throat: moist mucous membranes, no oral mucosal ulcers Cardiovascular: regular rate and rhythym, no murmur, rub, or gallop Respiratory: no respiratory distress, clear to auscultation Gastrointestinal: normoactive bowel sounds, soft, non-tender abdomen Skin: other (Ulceration overlying R 2nd PIP, 2nd R finger swelling, redness) Musculoskeletal: full muscle strength, no muscle tenderness Neurologic: AAOx3, CN II-XII Intact Psychiatric: interacting appropriately, not anxious Lab Data & Imaging Review 01/26/17 03:12 01/26/17 03:12 WBC 10.64 10^3/uL (3.80-9.50) H 01/26/17 03:12 RBC 4.87 10^6/uL (4.40-6.38) 01/26/17 03:12 Hgb 14.5 g/dL (13.7-17.5) 01/26/17 03:12 Hct 42.6 % (40.0-51.0) 01/26/17 03:12 MCV 87.5 fL (81.5-99.8) 01/26/17 03:12 MCH 29.8 pg (27.9-34.1) 01/26/17 03:12 MCHC 34.0 g/dL (32.4-36.7) 01/26/17 03:12 RDW 13.6 % (11.5-15.2) 01/26/17 03:12 Plt Count 188 10^3/uL (150-400) 01/26/17 03:12 MPV 10.4 fL (8.7-11.7) 01/26/17 03:12 Neut % (Auto) 68.3 % (39.3-74.2) 01/26/17 03:12 Lymph % (Auto) 21.7 % (15.0-45.0) 01/26/17 03:12 [place] % (Auto) 8.3 % (4.5-13.0) 01/26/17 03:12 Eos % (Auto) 0.8 % (0.6-7.6) 01/26/17 03:12 Baso % (Auto) 0.6 % (0.3-1.7) 01/26/17 03:12 Nucleat RBC Rel Count 0.0 % (0.0-0.2) 01/26/17 03:12 Absolute Neuts (auto) 7.27 10^3/uL (1.70-6.50) H 01/26/17 03:12 Absolute Lymphs (auto) 2.31 10^3/uL (1.00-3.00) 01/26/17 03:12 Absolute Monos (auto) 0.88 10^3/uL (0.30-0.80) H 01/26/17 03:12 Absolute Eos (auto) 0.09 10^3/uL (0.03-0.40) 01/26/17 03:12 Absolute Basos (auto) 0.06 10^3/uL (0.02-0.10) 01/26/17 03:12 Absolute Nucleated RBC 0.00 10^3/uL (0-0.01) 01/26/17 03:12 Immature Gran % 0.3 % (0.0-1.1) 01/26/17 03:12 Immature Gran # 0.03 10^3/uL (0.00-0.10) 01/26/17 03:12 Sodium 140 mEq/L (134-144) 01/26/17 03:12 Potassium 4.1 mEq/L (3.5-5.2) 01/26/17 03:12 Chloride 105 mEq/L (97-110) 01/26/17 03:12 Carbon Dioxide 20 mEq/l (22-31) L 01/26/17 03:12 Anion Gap 15 mEq/L (8-16) 01/26/17 03:12 BUN 15 mg/dL (7-23) 01/26/17 03:12 Creatinine 0.9 mg/dL (0.7-1.3) 01/26/17 03:12 Estimated GFR > 60 01/26/17 03:12 Glucose 94 mg/dL (70-100) 01/26/17 03:12 Calcium 9.5 mg/dL (8.5-10.4) 01/26/17 03:12 Total Bilirubin 0.2 mg/dL (0.1-1.4) 01/26/17 03:12 AST 25 IU/L (17-59) 01/26/17 03:12 ALT 40 IU/L (21-72) 01/26/17 03:12 Alkaline Phosphatase 73 IU/L (38-126) 01/26/17 03:12 Total Protein 6.7 g/dL (6.3-8.2) 01/26/17 03:12 Albumin 4.5 g/dL (3.5-5.0) 01/26/17 03:12 Assessment & Plan Assessment: 26 yo M w/ recent admission for b/l hand cellulitis presents with recurrent cellulitis. Plan: 1. R hand cellulitis - Now recurrent after finishing course of oral antibiotics. Cultures from I&D of R hand in December grew MRSA and Group A Strep. Discussed case with Dr. Bangura in the ED who spoke with Dr. Ruiz from ID. Dr. Ruiz recommended Daptomycin and inpatient ID consultation. - Daptomycin 4 mg/kg x1 given - ID consult placed - Oxycodone PRN for pain Diet - Regular Code - Full Ppx - Low risk Dispo - Admit to observation status
[2017-01-26 04:33] VITALS: RESP 16
[2017-01-26 08:13] VITALS: BP 118/81; PULSE 71; TEMP 98.2; O2SAT 95
--- NOTE | 2017-01-26 09:20 | PCMIDPN ---
Assessment/Plan: h/o B hand cellulitis/abscess and tenosynovitis R>L - initially with R arm lymphangitis. Patient had extensive I&D 12/29/16 cx showed GAS, MRSA. Stopped abx yesterday and feels like R index finger was more painful and ROM more limited. R index finger wound smaller than my last exam 01/18/17 and flexion at index PIP is better than my last exam although patient reports. Mild elevation in WBC, unclear significance. S/p 4 weeks antibiotics --okay to dc off antibiotics --follow up with Dr. Olmos next Sunday --if concern of ROM of R PIP of index finger would obtain imaging/tap joint to better characterize vs continuation of antibiotics Subjective: increased pain R index finger associated with some arm pain. Rec'd 1 dose daptomycin 4mg/kg in ER. Objective: Vital Signs Temp Pulse Resp BP Pulse Ox 36.8 C 71 16 118/81 H 95 01/26/17 08:00 01/26/17 08:00 01/26/17 08:00 01/26/17 08:00 01/26/17 08:00 Gen: nontoxic, sleeping, difficult to arouse and startled when awoke L hand thumb healed wound R hand multiple healed incision, limited ROM PIP R index finger~50% which is similar to slightly better than my last exam. Mild swelling of R index finger, wound is 1 x0.9cm with scab, no purulence >50% smaller than my last exam ICD10 Worksheet Patient Problems: Problems Problem Status Onset Infected hand Acute Lymphangitis Acute Methicillin resistant Staphylococcus aureus infection Acute ~12/28/16 Puncture wound of right hand with infection Acute Severe sepsis Acute
--- NOTE | 2017-01-26 14:47 | GDS ---
[f rep st] DISCHARGE SUMMARY DISCHARGE DIAGNOSIS: History of bilateral hand cellulitis and abscesses with tenosynovitis, right gr eater than left. Presented with right index finger swelling. CONSULTANTS: Dr. Seth, Infectious Disease. HOSPITAL COURSE: History of bilateral hand cellulitis with MRSA and group A strep: The patient was seen in the Emergency Department for right hand swelling. Due to his recent history of tenosynovitis , he was placed on observation and started on daptomycin. On the morning of hospital day zero, the joel sr was evaluated by Dr. Seth. She has been following him in the clinic. Actually thinks his h and looks better than it has looked with improved range of motion in his right index finger. The césar wade has had no systemic symptoms of infection since being in the hospital. He did receive 1 dose of daptomycin. I did discuss the case with Dr. Olmos, who is his hand surgeon, who had seen him last 3 days ago. Given that the patient does not have extreme pain with range of motion of the joint, Dr. Olmos does not think arthrocentesis is indicated at this point, which I would agree with. He plans to follow up with Dr. Olmos next week. PHYSICAL EXAM: VITAL SIGNS: On day of discharge, blood pressure 118/81, pulse 71, respiratory rate 16, O2 saturation 95% on room air, temperature afebrile. GENERAL: No acute distress. HEART: S1, S 2. LUNGS: Clear. EXTREMITIES: Right index finger with decreased range of motion in flexion, but w ithout significant pain. There is no significant erythema or lymphangitic streaking. DISCHARGE MEDICATIONS: Please refer to discharge medication reconciliation in [facility] for details. Below is a preliminary list. Antibiotics were stopped per the request of Dr. Seth. DISCHARGE INSTRUCTIONS: The patient will be discharged from the hospital. He was instructed to seek medical attention if his symptoms worsen. He should follow up with Dr. Olmos next Sunday as demetris ambrosio. /[id number]/MODL
--- NOTE | 2017-01-26 15:17 | ASDISCHSUM ---
Discharge Information Plan Status:Home with No Needs Medically Cleared to Leave: Discharge Date:01/26/2017 10:25 AM CM D/C Disposition:Home, Routine, Self-Care ADT D/C Disposition:Home, Routine, Self-Care Projected Discharge Date:01/26/2017 10:25 AM Transportation at D/C: Discharge Delay Reason: Follow-Up Date:01/26/2017 10:25 AM Discharge Slot: Final Diagnosis: Placement Information Patient Contact Information Contact Name:VIVIENNE Relationship:Friend Address: Work Phone: City: [facility] Phone: State/Zip Code: Email: Financial Information Financial Class: Primary Plan Desc:[employer] [place] Primary Plan Number:[id number] Secondary Plan Desc: Secondary Plan Number: Assessment Information Intervention Information Intervention Type:*Incorrect Registration Date of Service:01/26/2017 11:47 AM Patient Type:Inpatient Staff Member:LOUIE Aponte Courtney Hours: Discipline: Severity: Comment:
== END 2017-01-26 10:25 | disposition home or self-care (01) | DRG 603 ==
LOC: F3N 04:45
PROVIDERS: ADMIT Student in an Organized Health Care Education/Training Program; ATTEND Student in an Organized Health Care Education/Training Program
DX: L03.113 Cellulitis of right upper limb (principal); Z72.0 Tobacco use; Z86.14 Personal history of Methicillin resistant Staphylococcus aureus infection
CPT/HCPCS: 96374; G0378; J0878; J3010